=== PATIENT | male | born 1950 | race Caucasian/White ===

== ENCOUNTER 2017-10-14 08:51 | Outpatient (RCR) | payer MEDICARE, SELFPAY | END 2017-10-27 23:59 | LOC: DC 08:51 | PROVIDERS: Family Provider Family Medicine; PCP Family Medicine; Visit Provider Physician Assistant Medical | DX: E11.9 Type 2 diabetes mellitus without complications (principal); G47.30 Sleep apnea, unspecified; I42.9 Cardiomyopathy, unspecified; I48.91 Unspecified atrial fibrillation; Z68.41 Body mass index [BMI] 40.0-44.9, adult; E66.9 Obesity, unspecified; Z71.3 Dietary counseling and surveillance | CPT/HCPCS: G0108 ==

== ENCOUNTER 2017-11-18 10:00 | Outpatient (RCR) | payer MEDICARE, SELFPAY | END 2017-11-24 23:59 | LOC: DC 10:00 | PROVIDERS: Family Provider Family Medicine; PCP Family Medicine; Visit Provider Physician Assistant Medical | DX: E11.9 Type 2 diabetes mellitus without complications (principal); G47.30 Sleep apnea, unspecified; I42.9 Cardiomyopathy, unspecified; I48.91 Unspecified atrial fibrillation; Z68.41 Body mass index [BMI] 40.0-44.9, adult; E66.9 Obesity, unspecified; Z71.3 Dietary counseling and surveillance | CPT/HCPCS: G0108 ==

== ENCOUNTER 2018-01-20 15:49 | Outpatient (RCR) | payer MEDICARE, SELFPAY | END 2018-01-24 23:59 | LOC: DC 15:49 | PROVIDERS: Family Provider Family Medicine; PCP Family Medicine; Visit Provider Physician Assistant Medical | DX: E11.9 Type 2 diabetes mellitus without complications (principal); G47.30 Sleep apnea, unspecified; I42.9 Cardiomyopathy, unspecified; I48.91 Unspecified atrial fibrillation; Z68.41 Body mass index [BMI] 40.0-44.9, adult; E66.9 Obesity, unspecified; Z71.3 Dietary counseling and surveillance | CPT/HCPCS: G0108 ==

== ENCOUNTER 2018-03-09 11:26 | Outpatient (RCR) | payer MEDICARE, SELFPAY | END 2018-03-26 23:59 | LOC: DC 11:26 | PROVIDERS: Family Provider Family Medicine; PCP Family Medicine; Visit Provider Physician Assistant Medical | DX: E11.9 Type 2 diabetes mellitus without complications (principal); G47.30 Sleep apnea, unspecified; I42.9 Cardiomyopathy, unspecified; I48.91 Unspecified atrial fibrillation; Z68.41 Body mass index [BMI] 40.0-44.9, adult; E66.9 Obesity, unspecified; Z71.3 Dietary counseling and surveillance | CPT/HCPCS: G0108 ==

== ENCOUNTER 2018-04-18 15:32 | Outpatient (RCR) | payer MEDICARE, SELFPAY | END 2018-04-26 23:59 | LOC: DC 15:32 | PROVIDERS: Family Provider Family Medicine; PCP Family Medicine; Visit Provider Physician Assistant Medical | DX: E11.9 Type 2 diabetes mellitus without complications (principal); G47.30 Sleep apnea, unspecified; I42.9 Cardiomyopathy, unspecified; I48.91 Unspecified atrial fibrillation; E66.9 Obesity, unspecified; Z68.41 Body mass index [BMI] 40.0-44.9, adult; Z71.3 Dietary counseling and surveillance | CPT/HCPCS: 97803 ==

== ENCOUNTER 2018-06-14 08:52 | Outpatient (RCR) | payer MEDICARE, SELFPAY | END 2018-06-26 23:59 | LOC: DC 08:52 | PROVIDERS: Family Provider Family Medicine; PCP Family Medicine; Visit Provider Physician Assistant Medical | DX: E11.9 Type 2 diabetes mellitus without complications (principal); G47.30 Sleep apnea, unspecified; I42.9 Cardiomyopathy, unspecified; E78.5 Hyperlipidemia, unspecified; I48.91 Unspecified atrial fibrillation; E66.9 Obesity, unspecified; Z68.41 Body mass index [BMI] 40.0-44.9, adult; Z71.3 Dietary counseling and surveillance | CPT/HCPCS: G0108 ==

== ENCOUNTER 2018-08-09 09:56 | Outpatient (RCR) | payer MEDICARE, SELFPAY | END 2018-08-09 12:03 | disposition home or self-care (01) | LOC: DC 09:56 | PROVIDERS: Family Provider Family Medicine; PCP Family Medicine; Referring Provider Physician Assistant Medical; Visit Provider Physician Assistant Medical | DX: E11.9 Type 2 diabetes mellitus without complications (principal); G47.30 Sleep apnea, unspecified; I42.9 Cardiomyopathy, unspecified; E78.5 Hyperlipidemia, unspecified; I48.91 Unspecified atrial fibrillation; E66.9 Obesity, unspecified; Z68.41 Body mass index [BMI] 40.0-44.9, adult; Z71.3 Dietary counseling and surveillance | CPT/HCPCS: G0108 ==

== ENCOUNTER 2018-11-22 14:00 | Outpatient (RCR) | payer MEDICARE, SELFPAY | END 2018-11-24 23:59 | LOC: DC 14:00 | PROVIDERS: Family Provider Family Medicine; PCP Family Medicine; Visit Provider Family Medicine | DX: E11.9 Type 2 diabetes mellitus without complications (principal) | CPT/HCPCS: 97803; G0108 ==

== ENCOUNTER 2019-01-12 11:59 | Outpatient (RCR) | payer MEDICARE, SELFPAY ==
[2018-06-07 09:38] VITALS: BMI 40.7
== END 2019-01-24 23:59 ==
LOC: DC 11:59
PROVIDERS: Family Provider Family Medicine; PCP Family Medicine; Visit Provider Family Medicine
DX: E11.9 Type 2 diabetes mellitus without complications (principal); Z71.3 Dietary counseling and surveillance
CPT/HCPCS: 97803

== ENCOUNTER 2019-04-11 10:45 | Outpatient (RCR) | payer MEDICARE, SELFPAY ==
[2018-06-07 09:38] VITALS: BMI 40.7
[2019-03-08 12:40] VITALS: BMI 42.5
== END 2019-04-26 23:59 ==
LOC: DC 10:45
PROVIDERS: Family Provider Family Medicine; PCP Family Medicine; Visit Provider Family Medicine
DX: E11.9 Type 2 diabetes mellitus without complications (principal); Z71.3 Dietary counseling and surveillance
CPT/HCPCS: 97803

== ENCOUNTER 2019-07-06 14:42 | Outpatient (RCR) | payer MEDICARE, SELFPAY ==
[2019-03-08 12:40] VITALS: BMI 42.5
== END 2019-07-06 23:59 | disposition home or self-care (01) ==
LOC: DC 14:42
PROVIDERS: Family Provider Family Medicine; PCP Family Medicine; Visit Provider Family Medicine
DX: E11.9 Type 2 diabetes mellitus without complications (principal); Z71.3 Dietary counseling and surveillance
CPT/HCPCS: G0108

== ENCOUNTER → 2019-10-17 15:46 | Outpatient (CLI) | payer MEDICARE, SELFPAY ==
[2019-10-05 14:27] VITALS: BMI 40.6
[2019-10-17 16:30] LABS: Hemoglobin A1c 6.4 % (4.2-6.3)
[2019-10-17 16:40] LABS: Anion Gap 4 (5-15); BUN 12 mg/dL (7-18); BUN/Creat Ratio 17.3 RATIO (10-20); Calcium,Total 8.6 mg/dL (8.5-10.1); Chloride 111 mmol/L (98-107); Creatinine, Serum 0.69 mg/dL (0.70-1.30); EST Glomerular Filtration Rate 120 mL/min (>60); Est Glom Filt Rate - Afr Amer 146 mL/min (>60); Glucose 97 mg/dL (74-106); Potassium 3.9 mmol/L (3.5-5.1); Sodium Level 142 mmol/L (136-145)
== END ==
PROVIDERS: PCP Family Medicine; Referring Provider Physician Assistant; Visit Provider Physician Assistant
DX: Z01.818 Encounter for other preprocedural examination (principal); Z01.810 Encounter for preprocedural cardiovascular examination; E11.9 Type 2 diabetes mellitus without complications; I10 Essential (primary) hypertension
CPT/HCPCS: 36415; 80048; 83036

== ENCOUNTER 2020-09-05 15:02 | Outpatient (RCR) | payer MEDICARE, SELFPAY ==
[2020-09-05 14:26] VITALS: BMI 39.4
[2020-09-05 16:04] LABS: International Normalized Ratio 2.5; Prothrombin Time (Protime)PT. 26.4 SECONDS (11.7-14.9)
== END 2020-09-05 18:00 | disposition home or self-care (01) ==
LOC: LAB 15:02
PROVIDERS: PCP Family Medicine; Referring Provider Physician Assistant Medical
DX: I48.0 Paroxysmal atrial fibrillation (principal)
CPT/HCPCS: 36415; 85610

== ENCOUNTER 2020-10-17 08:54 | Outpatient (RCR) | payer MEDICARE, SELFPAY ==
[2020-10-03 10:02] LABS: International Normalized Ratio 1.8; Prothrombin Time (Protime)PT. 20.5 SECONDS (11.7-14.9)
[2020-10-17 10:17] LABS: International Normalized Ratio 1.6; Prothrombin Time (Protime)PT. 18.6 SECONDS (11.7-14.9)
== END 2020-10-17 18:00 | disposition home or self-care (01) ==
LOC: LAB 08:54
PROVIDERS: Internal Medicine Cardiovascular Disease; PCP Family Medicine; Referring Provider Physician Assistant Medical; Visit Provider Physician Assistant Medical
DX: I48.0 Paroxysmal atrial fibrillation (principal)
CPT/HCPCS: 36415; 85610

== ENCOUNTER 2020-11-14 09:01 | Outpatient (RCR) | payer MEDICARE, SELFPAY ==
[2020-10-31 09:00] LABS: International Normalized Ratio 2.2; Prothrombin Time (Protime)PT. 24.3 SECONDS (11.7-14.9)
[2020-11-14 10:11] LABS: Prothrombin Time (Protime)PT. 22.4 SECONDS (11.7-14.9)
== END 2020-11-14 18:00 | disposition home or self-care (01) ==
LOC: LAB 09:01
PROVIDERS: PCP Family Medicine; Referring Provider Physician Assistant Medical; Visit Provider Physician Assistant Medical
DX: I48.0 Paroxysmal atrial fibrillation (principal)
CPT/HCPCS: 36415; 85610

== ENCOUNTER 2020-12-05 08:43 | Outpatient (RCR) | payer MEDICARE, SELFPAY ==
[2020-12-05 10:15] LABS: International Normalized Ratio 2.2; Prothrombin Time (Protime)PT. 23.7 SECONDS (11.7-14.9)
== END 2020-12-05 18:00 | disposition home or self-care (01) ==
LOC: LAB 08:43
PROVIDERS: PCP Family Medicine; Referring Provider Physician Assistant Medical; Visit Provider Physician Assistant Medical
DX: I48.0 Paroxysmal atrial fibrillation (principal)
CPT/HCPCS: 36415; 85610

== ENCOUNTER → 2020-12-16 | Outpatient (CLI) | payer MEDICARE, SELFPAY ==
--- NOTE | 2020-12-16 | COLBX_PTH ---
PATIENT: AMAURI SHAH Jr. LOC: [facility] U#:[id number] AGE/SX: 70/M ROOM: RE12/16/[address]: Dr. Carrillo Chris MD : [id number] BED: DIS: 12/16/2020 SPEC #: [id number] RECD: 12/16/20 14:52 STATUS: ABIEL VALDOVINOS #: [id number] NADEEM: 12/16/20 00:[address]: Carrillo Chris DEPT: SURGICAL PATHOLOGY RECD BY: Barry Be ENTERED: 12/17/20 07:54 SP TYPE: COLON BX OTHR DR: Dr. Shola Be MD [facility] Tissues: A - Right colon B - Left colon C - Sigmoid colon biopsy Procedures: Surgery Specimen Level IV HEADER OPERATION: Colonoscopy with biopsies PRE-OP DIAGNOSIS: Ulcerative colitis, rectal bleed, diarrhea TISSUE SUBMITTED: A - Right colon, rule out active ulcerative colitis, B - Left colon/transverse colon, rule out UC, C - Distal sigmoid/rectum, rule out UC/dysplasia MICROSCOPIC DIAGNOSIS A. Right colon, biopsy: No significant pathologic change. See comment. B. Left colon, biopsy: No significant pathologic change. See comment. C. Distal sigmoid/rectum, biopsy: Chronic active colitis pattern of injury. See comment. AM:vianey 12/18/2020 COMMENT A & B. Eosinophils are mildly increased in the mucosa. The significance of this is unclear. Clinical correlation is suggested. There is no evidence of ulcerative colitis. C. Sections show mucosal ulceration with acute and chronic inflammation, granulation, cryptitis and glandular distortion. There is no evidence of dysplasia. Clinical correlation is suggested. MICROSCOPIC DESCRIPTION Slides are reviewed. GROSS DESCRIPTION A - Received in fixative is one container labeled with the patient's name and designated right colon. The specimen consists of multiple irregular fragments of light boone soft tissue that in aggregate measure 2 x 0.3 x 0.1 cm. The specimen is totally submitted in one cassette. B - Received in fixative is one container labeled with the patient's name and designated left/transverse colon. The specimen consists of multiple irregular fragments of light boone soft tissue that in aggregate measure 1 x 0.5 x 0.1 cm. The specimen is totally submitted in one cassette. C - Received in fixative is one container labeled with the patient's name and designated distal sigmoid/rectum. The specimen consists of multiple irregular fragments of light boone soft tissue that in aggregate measure 0.8 x 0.5 x 0.1 cm. The specimen is totally submitted in one cassette. / SJ:vianey 12/17/20 TC:2 CPT: 56289 x3
== END | disposition home or self-care (01) ==
PROVIDERS: PCP Family Medicine; Referring Provider Internal Medicine Gastroenterology; Visit Provider Internal Medicine Gastroenterology
DX: K51.90 Ulcerative colitis, unspecified, without complications (principal); K62.5 Hemorrhage of anus and rectum; R19.7 Diarrhea, unspecified
CPT/HCPCS: 88305

== ENCOUNTER → 2020-12-24 14:58 | Outpatient (CLI) | payer MEDICARE, SELFPAY ==
[2020-12-25 08:28] LABS: Hepatitis B Surface Antigen Non-Reactive (Nonreactive)
[2020-12-28 09:07] LABS: QNTFERON TB Mitogen Value > 10.00 IU/mL (.); QNTFERON TB Nil Value 0.65 IU/mL (.); QNTFERON TB1+ Ag Value 0.57 IU/mL (.)
[2020-12-28 12:38] LABS: QNTIFERON TB Positive Criteria Negative (Negative)
== END ==
PROVIDERS: PCP Family Medicine; Referring Provider Internal Medicine Gastroenterology; Visit Provider Internal Medicine Gastroenterology
DX: K51.90 Ulcerative colitis, unspecified, without complications (principal)
CPT/HCPCS: 36415; 86480; 87340

== ENCOUNTER 2021-01-02 08:50 | Outpatient (RCR) | payer MEDICARE, SELFPAY ==
[2021-01-02 09:29] LABS: Prothrombin Time (Protime)PT. 21.5 SECONDS (11.7-14.9)
== END 2021-01-02 18:00 | disposition home or self-care (01) ==
LOC: LAB 08:50
PROVIDERS: PCP Family Medicine; Referring Provider Physician Assistant Medical; Visit Provider Physician Assistant Medical
DX: I48.0 Paroxysmal atrial fibrillation (principal)
CPT/HCPCS: 36415; 85610

== ENCOUNTER 2021-02-13 11:04 | Outpatient (RCR) | payer MEDICARE, SELFPAY ==
[2021-01-30 11:37] LABS: International Normalized Ratio 1.7
[2021-02-13 11:48] LABS: International Normalized Ratio 2.2; Prothrombin Time (Protime)PT. 23.5 SECONDS (11.7-14.9)
== END 2021-02-14 18:00 | disposition home or self-care (01) ==
LOC: LAB 11:04
PROVIDERS: PCP Family Medicine; Referring Provider Physician Assistant Medical; Visit Provider Physician Assistant Medical
DX: I48.0 Paroxysmal atrial fibrillation (principal)
CPT/HCPCS: 36415; 85610

== ENCOUNTER 2021-03-06 08:35 | Outpatient (RCR) | payer MEDICARE, SELFPAY ==
[2021-03-06 09:48] LABS: International Normalized Ratio 2.3; Prothrombin Time (Protime)PT. 24.2 SECONDS (11.7-14.9)
== END 2021-03-06 18:00 | disposition home or self-care (01) ==
LOC: LAB 08:35
PROVIDERS: PCP Family Medicine; Referring Provider Physician Assistant Medical; Visit Provider Physician Assistant Medical
DX: I48.0 Paroxysmal atrial fibrillation (principal)
CPT/HCPCS: 36415; 85610

== ENCOUNTER 2021-11-26 11:49 | Outpatient (CLI) | payer MEDICARE, SELFPAY ==
[2021-11-26 13:37] LABS: BNP,B-Type NATRIURETIC PEPTIDE 24.6 pg/mL (0-100)
== END 2021-11-26 23:59 | disposition home or self-care (01) ==
LOC: LAB 11:52
PROVIDERS: PCP Family Medicine; Visit Provider Physician Assistant Medical
DX: R06.00 Dyspnea, unspecified (principal)
CPT/HCPCS: 36415; 83880

== ENCOUNTER 2021-11-28 11:02 | Outpatient (CLI) | payer MEDICARE, SELFPAY ==
--- NOTE | 2021-11-28 11:05 | ECHOD_ITS ---
Reason For Study: CHF, Pre-op Procedure This was a 2D Doppler, Color Flow transthoracic echocardiogram. The study was technically difficult. Exam performed in department. Left Ventricle Normal LV size. Mild concentric left ventricular hypertrophy. Left ventricular systolic function is normal. Stage 1 diastolic dysfunction. No regional wall motion abnormalities noted. Right Ventricle Normal RV size. Normal systolic function. Mitral Valve Mitral valve not well visualized. Tricuspid Valve Normal tricuspid valve. Aortic Valve The aortic valve is not well visualized. Pulmonic Valve The pulmonic valve is not well visualized. Great Vessels Normal aortic root. The pulmonary artery is normal size. Normal inferior vena cava. Pericardium/Pleural No pericardial effusion. Medication 22 gauge I.V. with prn adaptor inserted into right arm. Diluted definity 1.5ml given slow IV push to enhance endocardial definition. MMode/2D Measurements & Calculations LVIDd: 4.2 cm IVSd: 1.3 cm Ao root diam: 3.1 cm LVIDs: 2.7 cm LVPWd: 1.2 cm RVDd: 3.5 cm FS: 36.4 % LAV(MOD-bp): 63.2 ml LVAd ap4: 42.8 cm2 SV(MOD-sp4): 102.8 ml LAV(MOD-bp) Indexed: 28.7 ml/m2 LVLd ap4: 9.4 cm LAV(MOD-sp2): 61.7 ml EDV(MOD-sp4): 157.3 ml LAV(MOD-sp4): 59.6 ml EDV(sp4-el): 165.0 ml LVAs ap4: 22.2 cm2 LVLs ap4: 7.6 cm ESV(MOD-sp4): 54.6 ml ESV(sp4-el): 55.2 ml EF(MOD-sp4): 65.3 % EF(sp4-el): 66.6 % SV(sp4-el): 109.8 ml LA A4 area: 19.4 cm2 LA dimension(2D): 4.1 cm RA A4 area: 12.6 cm2 Doppler Measurements & Calculations MV E max guy: 43.9 cm/sec Lat Peak E' Guy: 10.5 cm/sec Med Peak E' Guy: 5.4 cm/sec MV A max guy: 48.6 cm/sec E/E' lat: 4.2 E/E' med: 8.1 MV E/A: 0.90 Ao V2 max: 133.2 cm/sec PA V2 max: 92.3 cm/sec Ao max P.1 mmHg ECHO/Echo Complete W/ Contrast Interpretation Summary Normal LV size. Mild concentric left ventricular hypertrophy. Left ventricular systolic function is normal. Stage 1 diastolic dysfunction. Contrast injection was performed. Ordering Physician: Merlyn Roman/Alexandro Saldivar Referring Physician: Shola Be Performed By: Keyana Garvey RDCS
== END 2021-11-28 23:59 | disposition home or self-care (01) ==
LOC: CVS 11:04
PROVIDERS: PCP Family Medicine; Referring Provider Physician Assistant Medical; Visit Provider Physician Assistant Medical
DX: I48.0 Paroxysmal atrial fibrillation (principal)
CPT/HCPCS: 93306; Q9957; A4216; C8929

== ENCOUNTER → 2022-02-11 | Outpatient (CLI) | payer MEDICARE, SELFPAY ==
[2022-02-11 16:14] LABS: ALB/GLOB Ratio 1.1 RATIO (0.9-2.4); AST(SGOT) 26 U/L (15-37); Alanine Aminotransfer ALT/SGPT 33 U/L (16-61); Albumin, Serum 3.1 g/dL (3.2-5.0); Alkaline Phosphatase 35 U/L (45-117); Anion Gap 4 (5-15); BUN 18 mg/dL (7-18); BUN/Creat Ratio 34.2 RATIO (10-20); Calcium,Total 8.6 mg/dL (8.5-10.1); Chloride 105 mmol/L (98-107); Creatinine, Serum 0.53 mg/dL (0.70-1.30); EST Glomerular Filtration Rate 164 mL/min (>60); Est Glom Filt Rate - Afr Amer 199 mL/min (>60); Globulin 2.9 g/dL (2.2-4.2); Glucose 160 mg/dL (74-106); Potassium 4.8 mmol/L (3.5-5.1); Sodium Level 138 mmol/L (136-145)
[2022-02-11 22:33] LABS: BNP,B-Type NATRIURETIC PEPTIDE 24.7 pg/mL (0-100)
== END | disposition home or self-care (01) ==
LOC: LAB 14:53
PROVIDERS: PCP Family Medicine; Referring Provider Nurse Practitioner Family; Visit Provider Nurse Practitioner Family
DX: I50.9 Heart failure, unspecified (principal); R06.00 Dyspnea, unspecified
CPT/HCPCS: 36415; 80053; 83880

== ENCOUNTER 2022-04-11 18:25 | Inpatient (IN) | payer MEDICARE, SELFPAY ==
[2022-04-11] VITALS (8 sets, daily range): BP systolic 97–159; BP diastolic 58–89; PULSE 84–116; RESP 16–28; TEMP 37.3–39.1; O2SAT 96–100; BMI 40.9; BMI 38.9
--- NOTE | 2022-04-11 18:41 | EKG12_ITS ---
Test Reason : DYSRYTHMIA Blood Pressure : / mmHG Vent. Rate : 105 BPM Atrial Rate : 105 BPM P-R Int : 162 ms QRS Dur : 092 ms QT Int : 338 ms P-R-T Axes : 062 -46 018 degrees QTc Int : 446 ms Sinus tachycardia Left anterior fascicular block Abnormal ECG Confirmed by VIVIENNE CEE, RACHNA ([id number]), sports editor ESTEBAN ALBERTS ([id number]) on 04/13/2022 11:07:28 AM Referred By: TRACY Confirmed By:RACHNA PALAFOX MD
--- NOTE | 2022-04-11 18:43 | EDS_ITS ---
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 fib, diabetes and CHF. He is on the blood thinner Eliquis. He states that he has been feeling well he has had increased swelling in his lower extremity for months. He is also had diarrhea for weeks about 4-5 times a day. And is now developed a low-grade temperature. He denies any cough or significant shortness of breath. He denies any abdominal pain. He lives at home with his who is currently not present but when she comes in I will discuss his care with her. Prior similar symptoms: Yes Recent Illness/Hospitalization: No [facility] Medical History Essential (primary) hypertension Glioblastoma Hyperlipidemia Muscle cramps Obesity (BMI 30-39.9) Obstructive sleep apnea PAF (paroxysmal atrial fibrillation) Paroxysmal atrial fibrillation Type 2 diabetes mellitus Home Medications lisinopril 5 mg tablet 5 mg PO BID 12/06/17 [History Last Taken Unknown] multivitamin 1 tab PO QDAY 12/07/17 [History Last Taken Unknown] memantine 10 mg tablet 10 mg PO BID 06/19/21 [History Last Taken Unknown] metformin 500 mg tablet 500 mg PO BID 06/19/21 [History Last Taken Unknown] sotalol 120 mg tablet 120 mg PO Q12H #180 tabs 10/08/21 [Rx Last Taken Unknown] dexamethasone 2 mg tablet 2 mg PO BID 02/11/22 [History Last Taken Unknown] lomustine 10 mg capsule 20 mg PO Q6W 02/11/22 [History Last Taken Unknown] lomustine 100 mg capsule 200 mg PO Q6W 02/11/22 [History Last Taken Unknown] ondansetron HCl 8 mg tablet 8 mg PO Q8H PRN Nausea 02/11/22 [History Last Taken Unknown] pantoprazole 20 mg tablet,delayed release 20 mg PO DAILY 02/11/22 [History Last Taken Unknown] furosemide 40 mg tablet 40 mg PO .COMPLEX #90 tabs 02/13/22 [Rx Last Taken Unknown] apixaban 5 mg tablet (Eliquis) 5 mg PO BID #60 tabs 03/16/22 [Rx Last Taken Unknown] Allergy/AdvReac Type Severity Reaction Status Date / Time prednisone Allergy Severe Anaphylaxis Verified 04/11/22 18:26 Family History Mother Colon cancer Father Myocardial infarction Struck by lightening Other CAD (coronary artery disease) Hyperlipidemia Hypertension Surgical History History of cardioversion History of craniotomy (12/02/21) History of left heart catheterization (05/2012) Social History (Updated 04/11/22 @ 19:[address] Angela Valdes MD) household members: spouse Smoking Status: Never smoker alcohol intake: never substance use type: does not use caffeine: Yes Type: tea Number of servings: 1 ROS ROS ED ROS Narrative Bilateral leg swelling. Diarrhea. Generalized weakness. Fever. Review of Systems ROS Unobtainable: Denies due to encephalopathy Constitutional Constitutional ED: Reports fever(s) Eyes Eyes: Denies blurry vision ENT ENT ED: Denies ear pain Cardiovascular Cardiovascular: Denies chest pain Respiratory/Chest Respiratory/Chest: Denies cough Gastrointestinal Gastrointestinal: Reports diarrhea; Denies abdominal pain or constipation Genitourinary Genitourinary ED: Denies dysuria or hematuria Musculoskeletal Musculoskeletal: Denies arthralgias Integumentary Denies abscess Neurologic Neurologic: Denies headache(s) Psychiatric Psychiatric: Denies anxiety Endocrine Endocrinology: Denies cold intolerance Hematologic/Lymphatic Hematologic/Lymphatic: Reports easy bleeding Allergic/Immunologic Allergic/Immunologic ED: Denies mouth swelling, tongue swelling or urticaria EXAM Physical Exam Narrative Exam Narrative: 8-year-old male no acute distress vital signs stable pulse ox 90% on room air no hypoxia. He does have a low-grade temperature 100.5. H EENT exam unremarkable. Neck nontender no JVD. Lungs clear to auscultation. Heart tachycardic rate of 107. No murmur appreciated. Abdomen obese but soft nontender normal bowel sounds no peritoneal signs. Extremities moves all 4. Equal symmetrical 5-5 electrical controls engineer strength. Dorsi plantarflexion intact. He has 3-4+ edema both lower extremities. Right lower leg has cellulitis on the anterior yanes below the knee and above the ankle. Warm to the touch. Mildly tender. Left leg is not cellulitic. All the way up to mid thighs. Neurologically is awake and alert. Moving all 4 extremities. He is answering questions and following commands. Const Vital Signs: 04/11/22 18:27 04/11/22 19:32 Temperature 100.5 F H 100.0 F H Temperature Source Oral Temporal Pulse Rate 107 H 104 H Respiratory Rate 16 18 Blood Pressure 112/79 132/76 H Blood Pressure Mean 90 94 Pulse Ox 99 96 Oxygen Delivery Method Room Air Positive well nourished, well developed and obese; Negative for cachectic, contractures or unkempt General Appearance ED: well developed; Negative for unkempt, cachectic or contractures Nutritional Appearance: obese; Negative for cachectic HEENT Reports moist mucous membranes Negative for trauma Eyes PERRL and EOMs intact bilaterally General Eye ED: Negative for pale conjunctiva or scleral icterus Neck no lymphadenopathy, supple and no JVD General: Negative for tenderness Lymph Lymphatic: Negative for other Chest Wall inspection of chest normal and palpation of chest normal Resp normal respiratory effort and clear to auscultation bilaterally Effort and Inspection: Negative for retractions Auscultation: Negative for rales, rhonchi or wheezes Cardio no murmurs; Negative for regular rate Rate: tachycardic GI normal to inspection, nondistended, normoactive bowel sounds, non-tender, non- distended and no masses Inspection: Negative for abdominal distention Auscultation: normoactive bowel sounds Palpation: soft; Negative for tender or guarding Extremity Negative for normal to inspection Extremity Narrative: Bilateral lower extremity mid thigh pitting edema. Right lower leg cellulitis. Red warm to touch. Mildly tender. General Extremety ED: Yes edema General Extremity: edema Neuro oriented x3 Sensorium / Orientation: alert; Negative for orientation impaired, lethargic or stuporous Motor Exam: strength 5/5 throughout Psych Appearance: Negative for unkempt Attitude: No agitated Mood & Affect: Negative for depressed or anxious Skin no rashes or lesions noted and no wounds Lesions: No lesion noted Rashes: No rashes noted Trauma: Negative for abrasion Wounds: Negative for wounds noted MDM MDM MDM Narrative Medical decision making narrative: 71-year-old male with weeks of diarrhea, leg swelling, brain surgery x2 this year for glioblastoma and now low-grade fever. Septic work-up pursued. He will not receive IV fluids because clinically looks like he is in congestive heart failure. He is stable and is not hypotensive. Repeat exam unchanged. Patient's is now present and she is able to fill in a lot of the history. On repeat exam he has an obvious cellulitis on his right lower leg. It most likely is what is accounting for his low-grade fever. He will be started on IV Unasyn. Patient will be admitted. He is currently on chemotherapy and is diabetic. I have the hospitalist on page. Lab Data Attestation: I reviewed the patient's lab results. Lab results narrative: CBC shows a white count 7. H&H 12.4 and 36. Platelets are low at 57,000. Electrolytes show potassium of 3.4 gap of 8 normal BUN and creatinine. Liver enzymes are unremarkable. BNP is normal at 76. Lactic acid is elevated at 2.1. Urinalysis is negative. Labs: Laboratory Results - last 24 hr 04/11/22 04/11/22 04/11/22 18:00 18:00 18:00 WBC 7.1 RBC 3.52 L Hgb 12.4 L Hct 36.4 L MCV 103.4 H MCH 35.2 H MCHC 34.1 RDW Std Deviation 79.9 H RDW Coeff of Feroz 21.3 H Plt Count 57 L MPV 9.2 Immature Gran % (Auto) 0.400 Neut % (Auto) 81.0 H Lymph % (Auto) 15.5 L [place] % (Auto) 3.0 Eos % (Auto) 0.0 Baso % (Auto) 0.1 Absolute Neuts (auto) 5.8 Absolute Lymphs (auto) 1.10 Nucleated RBC % 0 Differential Comment SCANNED Platelet Estimate MOD DEC Anisocytosis 2+ Microcytosis 1+ Macrocytosis 1+ Sodium 142 Potassium 3.4 L Chloride 106 Carbon Dioxide 28.0 Anion Gap 8 BUN 16 Creatinine 0.50 L Estim Creat Clear Calc 66.50 Est GFR (MDRD) Af Amer 211 Est GFR (MDRD) Non-Af 175 BUN/Creatinine Ratio 32.1 H Glucose 152 H Lactic Acid Calcium 8.6 Total Bilirubin 2.30 H AST 15 ALT 28 Alkaline Phosphatase 39 L Troponin I High Sens 5 B-Natriuretic Peptide 76.9 Total Protein 6.3 L Albumin 3.2 Globulin 3.1 Albumin/Globulin Ratio 1.0 Urine Color Urine Clarity Urine pH Ur Specific [place] Urine Protein Urine Glucose (UA) Urine Ketones Urine Occult Blood Urine Nitrite Urine Bilirubin Urine Urobilinogen Ur Leukocyte Esterase Urine RBC Urine WBC Ur Squamous Epith Cells Urine Bacteria Urine Mucus 04/11/22 04/11/22 18:40 18:55 WBC RBC Hgb Hct MCV MCH MCHC RDW Std Deviation RDW Coeff of Feroz Plt Count MPV Immature Gran % (Auto) Neut % (Auto) Lymph % (Auto) [place] % (Auto) Eos % (Auto) Baso % (Auto) Absolute Neuts (auto) Absolute Lymphs (auto) Nucleated RBC % Differential Comment Platelet Estimate Anisocytosis Microcytosis Macrocytosis Sodium Potassium Chloride Carbon Dioxide Anion Gap BUN Creatinine Estim Creat Clear Calc Est GFR (MDRD) Af Amer Est GFR (MDRD) Non-Af BUN/Creatinine Ratio Glucose Lactic Acid 2.1 H* Calcium Total Bilirubin AST ALT Alkaline Phosphatase Troponin I High Sens B-Natriuretic Peptide Total Protein Albumin Globulin Albumin/Globulin Ratio Urine Color Yellow Urine Clarity Clear Urine pH 8.0 Ur Specific [place] 1.010 Urine Protein Negative Urine Glucose (UA) Normal Urine Ketones Negative Urine Occult Blood Negative Urine Nitrite Negative Urine Bilirubin Negative Urine Urobilinogen 4 H Ur Leukocyte Esterase Negative Urine RBC 0 SEEN Urine WBC 0 SEEN Ur Squamous Epith Cells 0 SEEN Urine Bacteria 0 SEEN Urine Mucus 0 SEEN Radiography Chest X-Ray - ED: 1 View, Read by ED Physician, Heart, Lungs, Mediastinum, Bony Structures, No Acute Disease and Chronic Changes Diagnostic Testing: Chest rate, portable, single view interpreted myself shows no acute abnormality. Normal cardiac silhouette. No congestive heart failure. No pleural effusions. Rhythm Strip Rhythm Strip: Sinus Tach Rate: 105 EKG Initial EKG: Attestation: I personally reviewed and interpreted this EKG as follows: Interpretation: Sinus Rhythm, No Acute Injury Pattern and Sinus Tachycardia Comments: Sinus tachycardia rate of 105 no acute signs of MD nor ischemia nor any signs of dysrhythmia. Discharge Plan Dx/Rx/DC Orders Clinical Impression: Cellulitis of leg, right, Glioblastoma, Adult failure to thrive, Peripheral edema, Immunocompromised, Thrombocytopenia Disposition Disposition: Acute Care [facility]
[2022-04-11 19:12] LABS: Absolute Neutrophil Count 5.8 X10^3/uL (2.0-7.7); Basophil# 0.01 X10^3/uL; Basophil% 0.1 % (0-1); Hematocrit 36.4 % (40-54); Hemoglobin 12.4 g/dL (13.0-16.5); Lymphocyte % 15.5 % (19-41); Mean Corp Hgb Conc 34.1 g/dL (32-36); Mean Corpuscular Hgb 35.2 pg (27.0-32.0); Mean Corpuscular Volume 103.4 fL (80-94); Mean Platelet Vol. 9.2 fl (6.2-12.0); Monocyte# 0.21 X10^3/uL; NRBC Flagged by Analyzer 0 % (0-5); Neutrophil # 5.75 X10^3/uL (2.7-7.7); POSITIVE COUNT YES; POSITIVE MORPHOLOGY YES; Platelet Count 57 K/mm3 (150-450); RBC Distribution Width CV 21.3 % (11.6-14.6); RBC Distribution Width SD 79.9 fl (35.1-43.9); Red Blood Count 3.52 M/mm3 (4.6-6.2); White Blood Count 7.1 K/mm3 (4.4-11.0)
[2022-04-11 19:12] LABS: Bacteria 0 SEEN /hpf (None Seen); Color, Urine Yellow (Yellow); Glucose, Dipstick Normal (Normal); Ketone-Dipstick Negative (Negative); Leukocyte Esterase-Dipstick Negative /ul (Negative); Mucous, Urine 0 SEEN /hpf (<or=2+); Nitrite-Dipstick Negative (Negative); Occult Blood-Urine Negative /ul (Negative); Protein-Dipstick Negative (Negative); Red Blood Cells-Urine 0 SEEN /hpf (0-5); Squamous Epithelial Cells - UA 0 SEEN /hpf (0-5); Urine Bilirubin Dipstick Negative (Negative); Urine Clarity Clear (Clear); Urine Urobilinogen 4 mg/dl (Normal); White Blood Cells 0 SEEN /hpf (0-5)
[2022-04-11 19:13] LABS: Differential Indicated SCAN CRITERIA MET
--- NOTE | 2022-04-11 19:19 | RAD_ITS ---
STUDY: X-RAY CHEST REASON FOR EXAM: Male, 71 years old. chf ?? TECHNIQUE: Single AP portable view of the chest. COMPARISON: 05/27/2012. FINDINGS: The lungs are clear and expanded. There is no demonstrated pleural abnormality. Normal size heart. Normal mediastinum and tone. Normal visualized pulmonary arteries. Normal visualized aortic arch and descending thoracic aorta. Degenerative changes of the left acromioclavicular joint. Soft tissues and bony structures are otherwise unremarkable. RAD/Chest 1 View (Portable) IMPRESSION: No acute findings. Electronically Signed: Mary Andrade MD at 21:49 EDT Reading Location ID and State: [id number] / Tel , Service support ,
[2022-04-11 19:33] LABS: BNP,B-Type NATRIURETIC PEPTIDE 76.9 pg/mL (0-100)
[2022-04-11 19:34] LABS: AST(SGOT) 15 U/L (15-37); Alanine Aminotransfer ALT/SGPT 28 U/L (16-61); Albumin, Serum 3.2 g/dL (3.2-5.0); Alkaline Phosphatase 39 U/L (45-117); Anion Gap 8 (5-15); BUN 16 mg/dL (7-18); BUN/Creat Ratio 32.1 RATIO (10-20); Calcium,Total 8.6 mg/dL (8.5-10.1); Chloride 106 mmol/L (98-107); EST Glomerular Filtration Rate 175 mL/min (>60); Est Glom Filt Rate - Afr Amer 211 mL/min (>60); Globulin 3.1 g/dL (2.2-4.2); Glucose 152 mg/dL (74-106); Potassium 3.4 mmol/L (3.5-5.1); Protein, Total 6.3 g/dL (6.4-8.2); Sodium Level 142 mmol/L (136-145); Troponin-I HS (w/2H Reflex) 5 pg/mL (3.0-78.0)
[2022-04-11 19:36] LABS: Lactic Acid 2.1 mmol/L (0.4-1.9)
[2022-04-11 19:37] LABS: Anisocytosis 2+; Differential Comment SCANNED; Macrocytosis 1+; Microcytosis 1+; Platelet Estimate MOD DEC (ADEQ)
--- NOTE | 2022-04-11 20:14 | PCM.HP.STD ---
HPI - General General Date of Admission: 04/11/22 Date of Service: 04/11/22 Chief Complaint: Fatigue, malaise, FTT adult, BL LE edema. HPI Narrative The patient is a 71 y/o M w/ PMHx: Hx Ulcerative colitis on immunosuppressive vedolizumab, Chronic anemia/Fe deficiency anemia, Dementia unclear type with unclear behavioral disturbance history, Non-obstructive CAD, GERD, Morbid Obesity, HTN, HLD, PAF on eliquis, Diabetes mellitus type II, BEVERLY, Stage IV Glioblastoma s/p bifrontal craniotomy with guided resection of the R frontoparietal mass in addition to radiation with additional repeat follow-up craniotomy with chronic fatigue, imbalance, Chronic BL LE edema (Duplex US negative, BNP normal, 11/28/21 ECHO with normal LV size, mild concentric LVH, normal LV systolic function, stage I diastolic dysfunction with contrast injection performed with CHF as etiology ruled out), lightheadedness/dizziness ongoing since at least 09/2021 who now presents to the [facility] ED on 04/11/22 with history of several weeks of persistence diarrhea 4-5x daily and now onset low-grade temperatures without any recent abdominal pain, dyspnea above prior, cough and incidentally noted RLE redness, discomfort on day of ED presentation prompting ED evaluation. Work-up in the ED included T1 100.5, heart rate 107, BP 112/79, respiratory rate 16, 99% on room air, CBC with WC 7.1, hemoglobin 12.4, MCV 103.4, platelet 57 without marked shift, CMP with potassium 3.4, BUN/creat 16/0.50, glucose 152, lactic acid 2.1, T bili 2.30 however AST/ALT, alk phos not marked appearing, troponin 5, BNP 76.9, urinalysis unremarkable with no obvious evidence of UTI or dehydration, blood culture x2 pending per ED, respiratory COVID viral antigen negative, chest x-ray with no acute cardiopulmonary finding, C. difficile requested per ED; however, did note 03/19/22 cdiff testing outpatient per Dr. Schultz negative, EKG with sinus tachycardia with no acute evidence of ischemia. In the ED secondary to incidentally noted right lower extremity erythema, cellulitis patient was administered Unasyn and Tylenol for fever. [facility] Medical History (Updated 07/16/22 @ 20:28 by Eloisa Jacobo) Atrial fibrillation Cancer CPAP (continuous positive airway pressure) dependence Diabetes Essential (primary) hypertension Glioblastoma Hyperlipidemia Muscle cramps Obesity (BMI 30-39.9) Obstructive sleep apnea PAF (paroxysmal atrial fibrillation) Paroxysmal atrial fibrillation Sleep apnea Type 2 diabetes mellitus Home Medications lisinopril 5 mg tablet 5 mg PO BID 12/06/17 [History Last Taken Unknown] multivitamin 1 tab PO QDAY 12/07/17 [History Last Taken Unknown] memantine 10 mg tablet 10 mg PO BID 06/19/21 [History Last Taken Unknown] metformin 500 mg tablet 500 mg PO BID 06/19/21 [History Last Taken Unknown] sotalol 120 mg tablet 120 mg PO Q12H #180 tabs 10/08/21 [Rx Last Taken Unknown] dexamethasone 2 mg tablet 2 mg PO BID 02/11/22 [History Last Taken Unknown] lomustine 10 mg capsule 20 mg PO Q6W 02/11/22 [History Last Taken Unknown] lomustine 100 mg capsule 200 mg PO Q6W 02/11/22 [History Last Taken Unknown] ondansetron HCl 8 mg tablet 8 mg PO Q8H PRN Nausea 02/11/22 [History Last Taken Unknown] pantoprazole 20 mg tablet,delayed release 20 mg PO DAILY 02/11/22 [History Last Taken Unknown] furosemide 40 mg tablet 40 mg PO .COMPLEX #90 tabs 02/13/22 [Rx Last Taken Unknown] apixaban 5 mg tablet (Eliquis) 5 mg PO BID #60 tabs 03/16/22 [Rx Last Taken Unknown] Allergy/AdvReac Type Severity Reaction Status Date / Time prednisone Allergy Severe Anaphylaxis Verified 04/11/22 18:26 Family History Mother Colon cancer Father Myocardial infarction Struck by lightening Other CAD (coronary artery disease) Hyperlipidemia Hypertension Surgical History History of cardioversion History of craniotomy (12/02/21) History of left heart catheterization (05/2012) Social History (Updated 04/11/22 @ 19:[address] Angela Valdes MD) household members: spouse Smoking Status: Never smoker alcohol intake: never substance use type: does not use caffeine: Yes Type: tea Number of servings: 1 ROS ROS Narrative Admission Review of Systems: CONSTITUTIONAL: No weight loss, chills, + fever, weakness or fatigue. HEENT: Eyes: No visual loss, blurred vision, double vision or yellow sclerae. Ears, Nose, Throat: No hearing loss, sneezing, congestion, runny nose or sore throat. SKIN: + RLE erythema, abrasions. CARDIOVASCULAR: + BL LE severe worsening edema. No chest pain, chest pressure or chest discomfort, palpitations, orthopnea, syncopal events. RESPIRATORY: + Mild shortness of breath, dry occasional cough. No sputum, wheezing, hemoptysis. GASTROINTESTINAL: + Anorexia, diarrhea, No nausea, vomiting, abdominal pain, melena, BRBPR. GENITOURINARY: No dysuria, frequency, urgency or retention. NEUROLOGICAL: + Imbalance, BL LE weakness, memory impairment No headache, dizziness, syncope, paralysis, ataxia, numbness or tingling in the extremities, focal weakness, change in bowel or bladder control, seizure. MUSCULOSKELETAL: + muscle, back pain, joint pain or stiffness. HEMATOLOGIC: + anemia, bleeding or bruising. LYMPHATICS: No enlarged nodes. No history of splenectomy. PSYCHIATRIC: No history of depression or anxiety. ENDOCRINOLOGIC: No reports of sweating, cold or heat intolerance. No polyuria or polydipsia. ALLERGIES: No history of asthma, hives, eczema or rhinitis. Vital Signs Vital Signs Vital Signs: 04/11/22 18:27 04/11/22 19:32 Temperature 100.5 F H 100.0 F H Temperature Source Oral Temporal Pulse Rate 107 H 104 H Respiratory Rate 16 18 Blood Pressure 112/79 132/76 H Blood Pressure Mean 90 94 Pulse Ox 99 96 Oxygen Delivery Method Room Air Weight Weight: 269 lb 6.478 oz Body Mass Index (BMI) 40.9 Physical Exam Narrative Physical Examination: General: Awake, alert, oriented x 3 and cooperative, seated upright in the ED bed, fatigued appearing, no acute distress. Skin: Normal color, normal turgor, no icterus, no cyanosis except notable right lower extremity mild erythema from ankle to knee, increased warmth compared to prior leg, abrasions noted with no drainage. HEENT: AT/NC, EOMI, PERRLA, MMM, no carotid bruits or JVD noted; however, thickened neck makes evaluation difficult. Lungs: Distant, diminished, greater bases, moderate effort, no rales, ronchi or wheezing. Heart: Mildly tachycardic with regular rhythm; no gallop, rub audible. Abdomen: Soft, morbidly obese, NTTP, difficult to assess distention given habitus, mildly hyperactive BS, no obvious HSM however habitus makes evaluation difficult Extremities: No cyanosis, no clubbing, pedal to distal thigh 3-4+ pitting edema. Neurological: Patient awake, alert, oriented as noted, cognitive function appears intact although does have some underlying memory impairment/dementia; pupils equally reactive to light and accommodation, cranial nerves II-XII grossly normal, moving all 4 extremities, no focal deficits, strength severely global decreased. Psychiatric: Affect appears flat, fatigued, no acute evidence of depressive or anxiety feelings. Results Lab / Micro Data Result Diagrams: 04/11/22 18:00 04/11/22 18:00 Labs: Laboratory Results - last 24 hr 04/11/22 18:00: WBC 7.1, RBC 3.52 L, Hgb 12.4 L, Hct 36.4 L, MCV 103.4 H, MCH 35.2 H, MCHC 34.1, RDW Std Deviation 79.9 H, RDW Coeff of Feroz 21.3 H, Plt Count 57 L, MPV 9.2, Immature Gran % (Auto) 0.400, Neut % (Auto) 81.0 H, Lymph % (Auto) 15.5 L, [place] % (Auto) 3.0, Eos % (Auto) 0.0, Baso % (Auto) 0.1, Absolute Neuts (auto) 5.8, Absolute Lymphs (auto) 1.10, Nucleated RBC % 0, Differential Comment SCANNED, Platelet Estimate MOD DEC, Anisocytosis 2+, Microcytosis 1+, Macrocytosis 1+ 04/11/22 18:00: Sodium 142, Potassium 3.4 L, Chloride 106, Carbon Dioxide 28.0, Anion Gap 8, BUN 16, Creatinine 0.50 L, Estim Creat Clear Calc 66.50, Est GFR (MDRD) Af Amer 211, Est GFR (MDRD) Non-Af 175, BUN/Creatinine Ratio 32.1 H, Glucose 152 H, Calcium 8.6, Total Bilirubin 2.30 H, AST 15, ALT 28, Alkaline Phosphatase 39 L, Troponin I High Sens 5, Total Protein 6.3 L, Albumin 3.2, Globulin 3.1, Albumin/Globulin Ratio 1.0 04/11/22 18:00: B-Natriuretic Peptide 76.9 04/11/22 18:40: Urine Color Yellow, Urine Clarity Clear, Urine pH 8.0, Ur Specific [place] 1.010, Urine Protein Negative, Urine Glucose (UA) Normal, Urine Ketones Negative, Urine Occult Blood Negative, Urine Nitrite Negative, Urine Bilirubin Negative, Urine Urobilinogen 4 H, Ur Leukocyte Esterase Negative, Urine RBC 0 SEEN, Urine WBC 0 SEEN, Ur Squamous Epith Cells 0 SEEN, Urine Bacteria 0 SEEN, Urine Mucus 0 SEEN 04/11/22 18:55: Lactic Acid 2.1 H* Micro: Microbiology 04/11/22 18:55 Nasal Secretion SARS-CoV-2 Antigen (Rapid) - Final Rhythm Strip Rhythm Strip: Sinus Tach Rate: 105 Assessment & Plan Assessment/Plan (1) Cellulitis of leg, right: PLAN: Plan The patient is a 71 y/o M w/ PMHx: Hx Ulcerative colitis on immunosuppressive vedolizumab, Chronic anemia/Fe deficiency anemia, Dementia unclear type with unclear behavioral disturbance history, Non-obstructive CAD, GERD, Morbid Obesity, HTN, HLD, PAF on eliquis, Diabetes mellitus type II, BEVERLY, Stage IV Glioblastoma s/p bifrontal craniotomy with guided resection of the R frontoparietal mass in addition to radiation with additional repeat follow-up craniotomy with chronic fatigue, imbalance, Chronic BL LE edema (Duplex US negative, BNP normal, 11/28/21 ECHO with normal LV size, mild concentric LVH, normal LV systolic function, stage I diastolic dysfunction with contrast injection performed with CHF as etiology ruled out), lightheadedness/dizziness ongoing since at least 09/2021 who now presents to the [facility] ED on 04/11/22 with history of several weeks of persistence diarrhea 4-5x daily and now onset low-grade temperatures without any recent abdominal pain, dyspnea above prior, occasional dry cough with incidentally noted RLE erythema. #1. Fatigue, malaise, failure to thrive in adult secondary to persistent Diarrhea, Potential Acute Gastroenteritis with associated Low Grade T, Possible C-difficile Colitis although lower suspicion as well as #2, #3, #4, #5, #6: Will admit to [facility], hold IVFs given #6 given UA with normal SG with no obvious concern dehydration, obtain c diff to be cautious although recent outpatient 03/19/22 c-diff testing negative, stool cx, O+P with repeat AM CBC, obtain full respiratory viral panel, PRN anti-emetics. Maintain on fall precautions given history of chronic imbalance secondary to #2. #2. RLE Extremity Cellulitis: Wlil maintain on IV Unasyn, wplan repeat CBC in AM, continue affected extremity elevation above heart when seated and in bed, monitor erythema outline with VS checks. Continue treatment #5 as noted. #3. Hypokalemia: Admission K+ 3.4, magnesium level requested, supplementation given, repeat level in AM. #4. Lactic acidosis: Lactic acid 2.1, possibly secondary to GI losses, continue judicious hydration as noted above, trend per facility protocol. #5. Acute Thrombocytopenia, unclear etiology: Admission Plts 57, most recent noted prior in [employer] [facility] system 04/06/22 Plts 40 however noted to have been 199 on 03/23/22, following with Dr. Jad Schultz who obtained these labs, will causiously continue his anticoagulation therapy, repeat CBC in AM. #6. Severe BL LE Edema, Suspect likely secondary to chronic steroids usage with #6, Lower Suspicion CHF given recent outpatient Cardiology directed evaluation/work-up: Outpatient Cardiology evaluation with recent BL LE duplex US negative, BNP normal, 11/28/21 ECHO with normal LV size, mild concentric LVH, normal LV systolic function, stage I diastolic dysfunction with contrast injection performed with CHF as etiology ruled out, will place snug ENMANUEL wraps, elevate BL LE and will pulse dose with IV lasix with close renal fx monitoring. Given underlying history may need to consider abdominal/pelvic imaging for potential compressive etiology. #7. Stage IV Glioblastoma w/ recurrence noted < 12 months: Patient s/p bifrontal craniotomy with guided resection of the R frontoparietal mass in addition to radiation with additional repeat follow-up craniotomy with chronic fatigue, imbalance, Chronic BL LE edema (Duplex US negative, BNP normal, 11/28/21 ECHO with normal LV size, mild concentric LVH, normal LV systolic function, stage I diastolic dysfunction with contrast injection performed with CHF as etiology ruled out), lightheadedness/dizziness ongoing since at least 09/2021, maintained on lomustine/decadron regimen, encourage continued follow-up with Oncology/Neurosurgery with last tumor board 03/04/22 with recommended continued on lomustine/decadron regimen and q 3 month imaging. #8. Nonobstructive CAD: We will continue patient home Eliquis, lisinopril, not on beta-ben therapy nor statin therapy, defer to outpatient as patient is following closely with cardiology. #9. Chronic anemia/Fe deficiency anemia: Admission hemoglobin 12.4, most recent lab noted prior in [facility] 04/06/22 Hgb 12.2, 03/23/22 Hgb 11.3, continue supplementation, trend. #10. Hypertension: Continue home regimen including Lasix, lisinopril with hold parameters as needed, PRN hydralazine. #11. Hyperlipidemia: Not on statin therapy, defer to outpatient. #12. PAF: We will continue patient home sotalol as well as Eliquis regimen. #13. Diabetes mellitus type II: Hold oral home regimen, ADA diet, accu checks w/ ISS. #14. Dementia unclear type with unclear behavioral disturbance history: Suspect likely related to underlying history of glioblastoma with surgical intervention, continue memantine regimen, complicates presentation, maintain on fall precautions. #15. Morbid Obesity: Weight loss and lifestyle changes encouraged. Patient per review of records has had weight gain moreso since 11/2021. #16. GERD: We will continue patient on PPI. #17. BEVERLY: CPAP nightly. #18. DVT prophylaxis: SCDs, Enmanuel wraps given chronic lower extremity swelling, continue home Eliquis regimen cautiously given thrombocytopenia and significant gait and balance. #19. CODE status: Patient DASHAWN is his and his son and living will is not currently in place but encouraged him to discuss these items with case management. Discussed CODE status at length including difference between FULL code, DNR-CCA and DNR-CC status. Following discussions about the differences in these status which has never been discussed and following current discussions will maintain full CODE STATUS but he and his and family will discuss especially given his poor prognosis and potentially change this. Advanced Care Planning Face to Face Time: 16 minutes. Charges/Coding Visit Charges Inpatient E&M: 31222 Init Hosp L3 Procedures Hospitalists Procedures: 08759 Advncd Care Plan 30 Min
[2022-04-11] MEDS: Acetaminophen 500 MG Tablet 1000 MG PO (20:21)
[2022-04-11 21:05] LABS: Reflex Troponin-HS? (from REC) Y
[2022-04-11 22:02] LABS: Phosphorus 2.9 mg/dL (2.5-4.9)
[2022-04-11 22:22] LABS: Magnesium 1.4 mg/dL (1.6-2.6); Troponin-I HS 9 pg/mL (3.0-78.0)
[2022-04-11] MEDS: Furosemide 40 MG/4 ML Vial IV (22:27)
[2022-04-11] MEDS: Sotalol Hydrochloride 80 MG Tablet 120 MG PO (22:28)
[2022-04-11] MEDS: dexAMETHasone 4 MG Tablet 2 MG PO (22:28)
[2022-04-11] MEDS: APIXABAN 5 MG TABLET PO (22:30)
[2022-04-11] MEDS: Memantine Hydrochloride 10 MG Tablet PO (22:30)
--- NOTE | 2022-04-11 22:30 | CPS ---
[2205] Pt. doesn't have home CPAP unit with him tonight. When offered if he'd like to wear one of ours for the night, he politely refused and stated that he'd just wear 2L at night for comfort.
[2022-04-11] MEDS: Potassium Chloride Oral Tablet 20 MEQ 40 MEQ PO (22:33)
[2022-04-11] MEDS: Insulin Lispro 100 UNIT/ML INSULN.PEN SC (22:42)
[2022-04-11 22:55] LABS: Bedside Glucose 173 mg/dL (74-106)
[2022-04-11 23:05] LABS: Reflex Lactate? Y
--- NOTE | 2022-04-11 23:33 | CPS ---
[2257] 2L NC initiated for comfort while pt. sleeps.
[2022-04-12 00:49] LABS: Lactic Acid 2.2 mmol/L (0.4-1.9)
[2022-04-12 04:33] VITALS: BP 107/44; PULSE 89; RESP 16; TEMP 37.3; O2SAT 93
[2022-04-12 06:23] LABS: Absolute Lymphocyte Count 0.97 X10^3/uL (0.83-4.51); Absolute Neutrophil Count 6.2 X10^3/uL (2.0-7.7); Basophil# 0.01 X10^3/uL; Basophil% 0.1 % (0-1); Hematocrit 32.7 % (40-54); Hemoglobin 10.8 g/dL (13.0-16.5); Lymphocyte # 0.97 X10^3/ul (0.83-4.51); Lymphocyte % 12.6 % (19-41); Mean Corpuscular Hgb 34.6 pg (27.0-32.0); Mean Corpuscular Volume 104.8 fL (80-94); Monocyte# 0.26 X10^3/uL; Monocyte% 3.4 % (0-10); NRBC Flagged by Analyzer 0 % (0-5); Neutrophil # 6.23 X10^3/uL (2.7-7.7); Neutrophil % 81.3 % (47-70); POSITIVE COUNT YES; POSITIVE MORPHOLOGY YES; Platelet Count 53 K/mm3 (150-450); RBC Distribution Width SD 79.7 fl (35.1-43.9); Red Blood Count 3.12 M/mm3 (4.6-6.2); White Blood Count 7.7 K/mm3 (4.4-11.0)
[2022-04-12] MEDS: Insulin Lispro 100 UNIT/ML INSULN.PEN SC ×4 (06:37→22:01)
[2022-04-12 06:43] LABS: Differential Indicated SCAN CRITERIA MET
[2022-04-12 06:55] LABS: ALB/GLOB Ratio 0.9 RATIO (0.9-2.4); AST(SGOT) 20 U/L (15-37); Alanine Aminotransfer ALT/SGPT 29 U/L (16-61); Albumin, Serum 2.6 g/dL (3.2-5.0); Alkaline Phosphatase 34 U/L (45-117); Anion Gap 6 (5-15); BUN 14 mg/dL (7-18); BUN/Creat Ratio 26.6 RATIO (10-20); Calcium,Total 8.4 mg/dL (8.5-10.1); Chloride 105 mmol/L (98-107); Creatinine, Serum 0.53 mg/dL (0.70-1.30); EST Glomerular Filtration Rate 164 mL/min (>60); Est Glom Filt Rate - Afr Amer 199 mL/min (>60); Glucose 170 mg/dL (74-106); Potassium 3.5 mmol/L (3.5-5.1); Protein, Total 5.6 g/dL (6.4-8.2); Sodium Level 140 mmol/L (136-145)
[2022-04-12 07:15] LABS: Bedside Glucose 161 mg/dL (74-106)
[2022-04-12 07:27] VITALS: O2SAT 92
[2022-04-12 07:43] LABS: Anisocytosis 2+; Platelet Estimate MKD DEC (ADEQ)
[2022-04-12 09:19] VITALS: BP 113/56; PULSE 91; RESP 18; TEMP 37.4; O2SAT 96
[2022-04-12] MEDS: Sotalol Hydrochloride 80 MG Tablet 120 MG PO ×2 (09:25→22:01)
[2022-04-12] MEDS: Menthol/Lanolin/Calamine/Znox 113 GM Tube 1 APPLIC TOPICAL ×2 (09:26→22:05)
[2022-04-12] MEDS: dexAMETHasone 4 MG Tablet 2 MG PO ×2 (09:26→22:01)
[2022-04-12] MEDS: Furosemide 40 MG/4 ML Vial IV ×2 (09:27→18:46)
[2022-04-12] MEDS: APIXABAN 5 MG TABLET PO ×2 (09:27→22:02)
[2022-04-12] MEDS: Pantoprazole Sodium 20 MG Tablet PO (09:27)
[2022-04-12] MEDS: Memantine Hydrochloride 10 MG Tablet PO ×2 (09:27→22:03)
[2022-04-12 10:05] LABS: Magnesium 1.9 mg/dL (1.6-2.6)
[2022-04-12 11:45] LABS: Bedside Glucose 206 mg/dL (74-106)
--- NOTE | 2022-04-12 12:29 | PCM.PN.HOSP ---
Documented by User: Joyce Dye NP, STACK MATCHER-C 04/12/22 12:41 Subjective Subjective Patient seen and examined. Reports mild right lower extremity discomfort. Denies fever, chills. Denies other symptoms or complaints. Objective Data Objective Data Vital Signs: Vital Signs Temp Pulse Resp BP Pulse Ox O2 Del Method O2 Flow Rate 99.3 F H 91 18 113/56 L 96 Room Air 2 04/12/22 09:19 04/12/22 09:19 04/12/22 09:19 04/12/22 09:19 04/12/22 09:19 04/12/22 11:00 04/11/22 23:58 Oxygen Flow Rate (L/min) 2 Oxygen Delivery Method Room Air Weight: 261 lb 11.019 oz Body Mass Index (BMI) 38.9 Intake & Output: Intake and Output for Last 24 Hours 04/10/22 04/11/22 04/12/22 23:59 23:59 23:59 Intake Total 212 / 212 1828 / 1828 Output Total 450 / 450 1400 / 1400 Balance -238 / -238 428 / 428 Lab / Micro Data Result Diagrams: 04/12/22 06:00 04/12/22 06:00 Labs: Laboratory Results - last 24 hr 04/11/22 18:00: WBC 7.1, RBC 3.52 L, Hgb 12.4 L, Hct 36.4 L, MCV 103.4 H, MCH 35.2 H, MCHC 34.1, RDW Std Deviation 79.9 H, RDW Coeff of Feroz 21.3 H, Plt Count 57 L, MPV 9.2, Immature Gran % (Auto) 0.400, Neut % (Auto) 81.0 H, Lymph % (Auto) 15.5 L, [place] % (Auto) 3.0, Eos % (Auto) 0.0, Baso % (Auto) 0.1, Absolute Neuts (auto) 5.8, Absolute Lymphs (auto) 1.10, Nucleated RBC % 0, Differential Comment SCANNED, Platelet Estimate MOD DEC, Anisocytosis 2+, Microcytosis 1+, Macrocytosis 1+ 04/11/22 18:00: Sodium 142, Potassium 3.4 L, Chloride 106, Carbon Dioxide 28.0, Anion Gap 8, BUN 16, Creatinine 0.50 L, Estim Creat Clear Calc 66.50, Est GFR (MDRD) Af Amer 211, Est GFR (MDRD) Non-Af 175, BUN/Creatinine Ratio 32.1 H, Glucose 152 H, Calcium 8.6, Total Bilirubin 2.30 H, AST 15, ALT 28, Alkaline Phosphatase 39 L, Troponin I High Sens 5, Total Protein 6.3 L, Albumin 3.2, Globulin 3.1, Albumin/Globulin Ratio 1.0 04/11/22 18:00: B-Natriuretic Peptide 76.9 04/11/22 18:00: Phosphorus 2.9 04/11/22 18:40: Urine Color Yellow, Urine Clarity Clear, Urine pH 8.0, Ur Specific [place] 1.010, Urine Protein Negative, Urine Glucose (UA) Normal, Urine Ketones Negative, Urine Occult Blood Negative, Urine Nitrite Negative, Urine Bilirubin Negative, Urine Urobilinogen 4 H, Ur Leukocyte Esterase Negative, Urine RBC 0 SEEN, Urine WBC 0 SEEN, Ur Squamous Epith Cells 0 SEEN, Urine Bacteria 0 SEEN, Urine Mucus 0 SEEN 04/11/22 18:55: Lactic Acid 2.1 H* 04/11/22 21:40: Magnesium 1.4 L, Troponin I High Sens 9 04/11/22 22:38: POC Glucose 173 H 04/11/22 23:45: Lactic Acid 2.2 H* 04/12/22 06:00: WBC 7.7, RBC 3.12 L, Hgb 10.8 L, Hct 32.7 L, MCV 104.8 H, MCH 34.6 H, MCHC 33.0, RDW Std Deviation 79.7 H, RDW Coeff of Feroz 21.0 H, Plt Count 53 L, MPV 9.0, Immature Gran % (Auto) 2.600 H, Neut % (Auto) 81.3 H, Lymph % (Auto) 12.6 L, [place] % (Auto) 3.4, Eos % (Auto) 0.0, Baso % (Auto) 0.1, Absolute Neuts (auto) 6.2, Absolute Lymphs (auto) 0.97, Nucleated RBC % 0, Platelet Estimate MKD DEC, Anisocytosis 2+ 04/12/22 06:00: Sodium 140, Potassium 3.5, Chloride 105, Carbon Dioxide 29.0, Anion Gap 6, BUN 14, Creatinine 0.53 L, Estim Creat Clear Calc 66.50, Est GFR (MDRD) Af Amer 199, Est GFR (MDRD) Non-Af 164, BUN/Creatinine Ratio 26.6 H, Glucose 170 H, Calcium 8.4 L, Total Bilirubin 3.30 H, AST 20, ALT 29, Alkaline Phosphatase 34 L, Total Protein 5.6 L, Albumin 2.6 L, Globulin 3.0, Albumin/Globulin Ratio 0.9 04/12/22 06:35: POC Glucose 161 H 04/12/22 09:48: Magnesium 1.9 04/12/22 11:13: POC Glucose 206 H Micro: Microbiology 04/11/22 22:04 Mucosa - Nose Respiratory Panel (PCR) - Final 04/11/22 18:55 Nasal Secretion SARS-CoV-2 Antigen (Rapid) - Final Radiography Diagnostic Testing: Radiology Impression Chest X-Ray 04/11/22 19:19 IMPRESSION: No acute findings. Electronically Signed: Mary Andrade MD at 21:49 EDT Reading Location ID and State: [id number] / Tel , Service support , Rhythm Strip Rhythm Strip: Sinus Tach Rate: 105 Physical Exam Const alert, oriented x3 and no apparent distress Orientation / Consciousness: awake, oriented to person, oriented to place and oriented to time HEENT normocephalic and moist oral mucous membranes Eyes PERRL, EOMs intact bilaterally and conjunctivae normal Neck no lymphadenopathy Resp normal respiratory effort and clear to auscultation bilaterally Cardio regular rate, regular rhythm and no murmurs Peripheral Pulses: pulses 2+ throughout GI normal to inspection, nondistended, normoactive bowel sounds, non-tender and non-distended Extremity normal to inspection Skin no rashes or lesions noted Skin Narrative: Right lower extremity cellulitis, not visualized at this time. Enmanuel wraps in place. Lesions: no lesions Rashes: no rashes Trauma: no lacerations or abrasions Neuro CN's II-XII intact bilaterally, no focal motor deficits, no sensory deficits noted and deep tendon reflexes 2+ bilaterally Psych mental status grossly normal and affect normal Assessment & Plan Assessment/Plan (1) Cellulitis of leg, right: PLAN: Plan 1. Right lower extremity cellulitis-IV Unasyn. 2. Failure to thrive-PT/OT. Case management consult. 3. Persistent diarrhea, likely viral gastroenteritis-no further diarrhea since admission. 4. Stage IV glioblastoma-status post resection and radiation. Continue outpatient follow-up. On Decadron, lomustine. 5. Chronic lower extremity edema-Enmanuel wrap's bilateral lower extremities. Previous echo with normal EF, stage I diastolic dysfunction. Lower extremity duplex negative. 6. Nonobstructive CAD-continue Eliquis, lisinopril. 7. Chronic anemia/iron deficiency anemia-appears stable. Trend CBC. 8. Hypertension-stable, continue current regimen. 9. Paroxysmal atrial fibrillation-on Eliquis, sotalol. 10. Type 2 diabetes tooqsflq-Ugyk-Bcqlo with sliding scale insulin. 11. Dementia, unclear behavioral disturbance history-on memantine. 12. BEVERLY-continue CPAP. 13. GERD-continue PPI. 14. Morbid obesity-encouraged diet and lifestyle modifications. 15. Thrombocytopenia-unclear etiology. Trend CBC. May need hematology evaluation if further trends down. DVT prophylaxis-Eliquis This patient was seen by Joyce Dye NP-C under the supervision of Dr. Hu. Time spent examining patient, reviewing data and subsequent management of care: 15 minutes Documented by User: Dr. Tyson Hu DO 04/12/22 14:20 Objective Data Lab / Micro Data Result Diagrams: 04/12/22 06:00 04/12/22 06:00 Assessment & Plan Assessment/Plan (1) Cellulitis of leg, right: Charges/Coding Addendum Addendum: Patient was seen and examined today independently of Joyce Dye, he was admitted yesterday for cellulitis of his right lower leg, at the time of my examination his is in the room, she states that the patient has been having severe swelling in his legs for months, he is on Lasix at home but only 40 mg daily. Patient had an echocardiogram performed in November of this year which showed a normal EF, PA pressure could not be estimated however. On examination he appeared in no distress, he appeared older than his stated age. Vital signs as documented. Skin warm and dry and without overt rashes. Neck without JVD, neck was supple, trachea midline, thyroid was normal. Lungs clear bilaterally, normal air movement was noted. Heart exam notable for regular rhythm, normal sounds and absence of murmurs, rubs or gallops. Abdomen unremarkable and without evidence of organomegaly, masses, or abdominal aortic enlargement. Bowel sounds are present, abdomen is not distended. Extremities severe lower leg pitting edema was noted to be present on examination, there is some redness over the anterior tibial area of the right leg along with some warmth there,, no cyanosis was noted, no clubbing was noted. Neuro: Cranial nerves II through XII are grossly intact, no focal motor deficits were noted, sensation to light touch and pinprick intact, motor exam 5/5 throughout. Psych: Patient is alert and oriented x3, he does not appear anxious or depressed, he does not appear agitated. Impression: #1 right lower leg cellulitis-patient's antibiotic will be changed to Rocephin for ease of administration and limitation of fluid administration. #2 severe lower extremity edema-exact etiology unclear, could be due to pulmonary hypertension (patient has a history of sleep apnea) I will continue the patient on IV Lasix, he will need his Lasix dosage increased when he is discharged home. #3 glioblastoma multiforme-this tumor has reoccurred according to his , he follows up with an oncologist in [place]. #4 obstructive sleep apnea-patient has his own CPAP machine in his room #5 elevated bilirubin-etiology unclear, patient's CMP will be rechecked tomorrow #6 paroxysmal atrial fibrillation-patient is on rate control medication as well as Eliquis #7 type 2 diabetes-patient's blood sugars will be monitored, sliding scale insulin will be administered as as indicated I talked to the patient's about discharge planning, she was unsure if she wanted him to go to to a [facility] facility for short-term rehab services or take him home at the time of discharge. PT and OT will see the patient I have reviewed Joyce Dye's progress note including her medical assessment and plan of care and with the above additions endorse it. Total clinical time spent by myself addressing the patient's medical issues, reviewing the data, and collaborating with patient's care team: 25 minutes Visit Charges Inpatient E&M: 19883 Subs Hosp L3
[2022-04-12 16:54] VITALS: BP 93/47; PULSE 67; RESP 16; TEMP 36.6; O2SAT 94
[2022-04-12 17:10] LABS: Bedside Glucose 194 mg/dL (74-106)
[2022-04-12] MEDS: Ceftriaxone 1 GM/50 ML BAG IV (18:46)
[2022-04-12 19:13] VITALS: BP 105/72
[2022-04-12 21:51] VITALS: BP 102/63; PULSE 74; RESP 16; TEMP 37.4; O2SAT 96
[2022-04-12 22:25] LABS: Bedside Glucose 178 mg/dL (74-106)
[2022-04-13 06:27] VITALS: BP 110/60; PULSE 66; RESP 16; TEMP 37.3; O2SAT 94
[2022-04-13 06:27] LABS: Hematocrit 25.7 % (40-54); Hemoglobin 8.6 g/dL (13.0-16.5); Mean Corp Hgb Conc 33.5 g/dL (32-36); Mean Corpuscular Hgb 35.1 pg (27.0-32.0); Mean Corpuscular Volume 104.9 fL (80-94); Mean Platelet Vol. 9.2 fl (6.2-12.0); POSITIVE COUNT YES; POSITIVE MORPHOLOGY YES; Platelet Count 54 K/mm3 (150-450); RBC Distribution Width CV 20.3 % (11.6-14.6); RBC Distribution Width SD 77.6 fl (35.1-43.9); Red Blood Count 2.45 M/mm3 (4.6-6.2); White Blood Count 6.5 K/mm3 (4.4-11.0)
[2022-04-13 06:32] LABS: Differential Indicated MANUAL DIFF
[2022-04-13 06:54] LABS: ALB/GLOB Ratio 0.7 RATIO (0.9-2.4); AST(SGOT) 9 U/L (15-37); Alanine Aminotransfer ALT/SGPT 19 U/L (16-61); Albumin, Serum 2.1 g/dL (3.2-5.0); Alkaline Phosphatase 38 U/L (45-117); Anion Gap 7 (5-15); BUN 16 mg/dL (7-18); Calcium,Total 8.5 mg/dL (8.5-10.1); Chloride 103 mmol/L (98-107); Creatinine, Serum 0.33 mg/dL (0.70-1.30); EST Glomerular Filtration Rate 279 mL/min (>60); Est Glom Filt Rate - Afr Amer 337 mL/min (>60); Globulin 3.2 g/dL (2.2-4.2); Glucose 175 mg/dL (74-106); Potassium 3.2 mmol/L (3.5-5.1); Protein, Total 5.3 g/dL (6.4-8.2); Sodium Level 139 mmol/L (136-145)
[2022-04-13 06:59] LABS: Anisocytosis 2+; Macrocytosis 2+
[2022-04-13 07:00] LABS: Platelet Estimate MOD DEC (ADEQ)
[2022-04-13 07:03] LABS: Absolute Lymphocyte Count 0.91 X10^3/uL (0.83-4.51); Absolute Neutrophil Count 5.3 X10^3/uL (2.0-7.7); Total Cells Counted 100 (MANUAL DIFF)
[2022-04-13 07:04] LABS: Eosinophil 1 % (0-5); Lymphocyte 14 % (19-41); Metamyelocyte 2 % (0-1); Monocyte 1 % (0-10); Myelocyte 1 % (0-0); Neutrophil-Band 10 % (0-5); Neutrophil-Segmented 71 % (47-70)
[2022-04-13 07:10] LABS: Bedside Glucose 146 mg/dL (74-106)
[2022-04-13 08:44] VITALS: BP 104/58; PULSE 75; RESP 20; TEMP 37; O2SAT 96
[2022-04-13] MEDS: Memantine Hydrochloride 10 MG Tablet PO ×2 (08:51→21:41)
[2022-04-13] MEDS: Pantoprazole Sodium 20 MG Tablet PO (08:51)
[2022-04-13] MEDS: APIXABAN 5 MG TABLET PO ×2 (08:51→21:41)
[2022-04-13] MEDS: Sotalol Hydrochloride 80 MG Tablet 120 MG PO ×2 (08:51→21:40)
[2022-04-13] MEDS: Menthol/Lanolin/Calamine/Znox 113 GM Tube 1 APPLIC TOPICAL ×2 (08:52→21:38)
[2022-04-13] MEDS: Lisinopril 5 MG Tablet PO ×2 (08:52→21:41)
[2022-04-13] MEDS: Furosemide 40 MG/4 ML Vial IV ×2 (08:52→16:55)
[2022-04-13] MEDS: Potassium Chloride Oral Tablet 20 MEQ 60 MEQ PO (08:52)
[2022-04-13] MEDS: dexAMETHasone 4 MG Tablet 2 MG PO ×2 (08:52→21:39)
[2022-04-13] MEDS: Ceftriaxone 1 GM/50 ML BAG IV (11:04)
[2022-04-13] MEDS: Insulin Lispro 100 UNIT/ML INSULN.PEN SC ×3 (11:04→21:46)
--- NOTE | 2022-04-13 11:30 | CASEMGMT ---
PRETTY SINGH Assessment: Face to Face with pt for initial transition planning/care coordination assessment. RN FRANCISCO introduced self and role at [facility], pt voices understanding and consents to assessment. Pt is A/O x4 and answers all questions appropriately at this time. Pt lying in bed in no distress with at bedside. Care providers, pharmacy, and demographics verified/updated. Admitting Dx: RLE cellulitis, intractable diarrhea, FTT adult PCP: [facility] Specialists:Yariel, cardio; Aries, GI; Marion, onc at ; Gilson, brain surgeon Preferred Pharmacy: [facility] Insurance: [employer] Prescription Benefit: yes LW/HPOA: Pt denies having a LW/DPOA and denies need for info regarding AD. states they are in the process of having these items drawn up with the planetarium technician currently. She is aware she can bring them in to be scanned into the chart once completed. LNOK: Anni Dela Cruz, Living Arrangements: Pt lives with in a mobile home with no steps to enter. Pt had been independent with ADL's prior to November. At this time, pt has had swelling and had needed help with ADL's from . Transportation: Pt provides him with transportation. DME/HHC/SNF: Pt has a BGM with appropriate supplies, rollator, ww, straight cane, shower chair, toilet riser, lift chair and an adjustable bed without rails. Pt has had [facility] in the past. Pt denies SNF stays. Pt states if pt swelling is completely gone, he can return home. She states with the swelling, it is too much to care for him. She would like him to get stronger before returning home. Made pt and aware that currently pt is medically ready for dc but needing the assist of 2 people. Pt is interested in seeing a list of facilities that take his insurance. Pt states she does not want [facility]. They are not sure of the plan as far as chemo at this point, if it will continue or not. Pt states no further concerns/needs. CM to follow. Advised pt to ask CM if any further question/concerns/needs arise, voices understanding. Pt Goal: S/t therapy prior to returning home Plan: S/t therapy prior to returning home, updated ADWOA. Pt home address is: [id number], [place], [place]
[2022-04-13 11:35] LABS: Bedside Glucose 218 mg/dL (74-106)
[2022-04-13 12:00] VITALS: O2SAT 92
--- NOTE | 2022-04-13 12:02 | PN.HOSP_ITS ---
Documented by User: Joyce Dye NP, CERTIFIED PEDIATRIC NURSE PRACTITIONER-C 04/13/22 12:10 Subjective Subjective Patient seen and examined. Right lower extremity redness improved. Patient denies fever, chills. Reports right lower extremity discomfort is improving as well. Requiring significant assistance. looking at SNF options. Objective Data Objective Data Vital Signs: Vital Signs Temp Pulse Resp BP Pulse Ox O2 Del Method O2 Flow Rate 98.6 F 75 20 H 104/58 L 96 Room Air 2 04/13/22 08:44 04/13/22 08:44 04/13/22 08:44 04/13/22 08:44 04/13/22 08:44 04/13/22 08:45 04/11/22 23:58 Oxygen Flow Rate (L/min) 2 Oxygen Delivery Method Room Air Weight: 261 lb 7.492 oz Body Mass Index (BMI) 38.9 Intake & Output: Intake and Output for Last 24 Hours 04/11/22 04/12/22 04/13/22 23:59 23:59 23:59 Intake Total 212 / 212 2630 / 2630 752 / 752 Output Total 450 / 450 1700 / 1900 1375 / 1375 Balance -238 / -238 930 / 730 -623 / -623 Lab / Micro Data Result Diagrams: 04/13/22 05:55 04/13/22 05:55 Labs: Laboratory Results - last 24 hr 04/12/22 16:40: POC Glucose 194 H 04/12/22 21:50: POC Glucose 178 H 04/13/22 05:55: WBC 6.5, RBC 2.45 L, Hgb 8.6 L, Hct 25.7 L, MCV 104.9 H, MCH 35.1 H, MCHC 33.5, RDW Std Deviation 77.6 H, RDW Coeff of Feroz 20.3 H, Plt Count 54 L, MPV 9.2, Neut % (Auto) Not Reportable, Absolute Neuts (auto) 5.3, Absolute Lymphs (auto) 0.91, Total Counted 100, Neutrophils % (Manual) 71 H, Band Neutrophils % 10 H, Lymphocytes % (Manual) 14 L, Monocytes % (Manual) 1, Eosinophils % (Manual) 1, Metamyelocytes % 2 H, Myelocytes % 1 H, Diff Path Review May foll, Platelet Estimate MOD DEC, Anisocytosis 2+, Macrocytosis 2+ 04/13/22 05:55: Sodium 139, Potassium 3.2 L, Chloride 103, Carbon Dioxide 29.0, Anion Gap 7, BUN 16, Creatinine 0.33 L, Estim Creat Clear Calc 66.50, Est GFR (MDRD) Af Amer 337, Est GFR (MDRD) Non-Af 279, BUN/Creatinine Ratio 48.0 H, Glucose 175 H, Calcium 8.5, Total Bilirubin 1.70 H, AST 9 L, ALT 19, Alkaline Phosphatase 38 L, Total Protein 5.3 L, Albumin 2.1 L, Globulin 3.2, Albumin/Globulin Ratio 0.7 L 04/13/22 06:29: POC Glucose 146 H 04/13/22 11:03: POC Glucose 218 H Micro: Microbiology 04/11/22 22:04 Mucosa - Nose Respiratory Panel (PCR) - Final 04/11/22 18:55 Nasal Secretion SARS-CoV-2 Antigen (Rapid) - Final Rhythm Strip Rhythm Strip: Sinus Tach Rate: 105 Physical Exam Const alert, oriented x3 and no apparent distress HEENT normocephalic and moist oral mucous membranes Eyes PERRL, EOMs intact bilaterally and conjunctivae normal Neck no lymphadenopathy Resp normal respiratory effort and clear to auscultation bilaterally Cardio regular rate, regular rhythm and no murmurs Peripheral Pulses: pulses 2+ throughout GI normal to inspection, nondistended, normoactive bowel sounds, non-tender and non-distended Extremity normal to inspection General Extremity: edema bilateral lower extremity Skin no rashes or lesions noted Skin Narrative: Right lower extremity redness improved. Lesions: no lesions Rashes: no rashes Trauma: no lacerations or abrasions Neuro CN's II-XII intact bilaterally, no focal motor deficits, no sensory deficits noted and deep tendon reflexes 2+ bilaterally Psych mental status grossly normal and affect normal Assessment & Plan Assessment/Plan (1) Cellulitis of leg, right: PLAN: Plan 1.? Right lower extremity cellulitis-IV Rocephin. Improving. 2.? Failure to thrive-PT/OT.? Case management/social work consult. Plan for SNF pending acceptance. 3.? Persistent diarrhea, likely viral gastroenteritis-no further diarrhea since admission. 4. Stage IV glioblastoma-status post resection and radiation.? Continue outpatient follow-up.? On Decadron, lomustine. 5. Severe Chronic lower extremity edema-Enmanuel wrap's bilateral lower extremities.? Previous echo with normal EF, stage I diastolic dysfunction.? Lower extremity duplex negative. Continue IV Lasix. Increase home Lasix regimen to 40 mg twice daily at discharge. 6. Nonobstructive CAD-continue Eliquis, lisinopril. 7. Chronic anemia/iron deficiency anemia-appears stable.? Trend CBC. 8. Hypertension-stable, continue current regimen. 9. Paroxysmal atrial fibrillation-on Eliquis, sotalol. 10. Type 2 diabetes [id number]-Afyb-[id number] with sliding scale insulin. 11. Thrombocytopenia-unclear etiology.? Trend CBC.? Recommend outpatient follow- up with hematology. 12. BEVERLY-continue CPAP. 13. GERD-continue PPI. 14. Morbid obesity-encouraged diet and lifestyle modifications. DVT prophylaxis-Eliquis This patient was seen by Joyce Dye NP-C under the supervision of Dr. Forbes. Discharge planning: Awaiting acceptance to SNF. Time spent examining patient, reviewing data and subsequent management of care: 14 minutes Documented by User: Dr. Elizabeth Forbes MD 04/13/22 15:10 Objective Data Lab / Micro Data Result Diagrams: 04/13/22 05:55 04/13/22 05:55 Assessment & Plan Assessment/Plan (1) Cellulitis of leg, right: Charges/Coding Addendum Addendum: This patient was seen in conjunction with Joyce Dye NP. I have independently interviewed and examined the patient and reviewed pertinent historical, laboratory, and other data. I have reviewed her note and concur with her documentation Patient was seen and examined. Complains of feeling tired. Swelling in lower extremities improving with Enmanuel wraps. Denies any fever or chills. Physical Exam: Gen: Comfortable, not pale, not jaundiced CVS:HS I +II, regular, no murmurs RESP: Diminished at lung bases GI: BS present and normal, soft, nontender, no palpable organs EXT:No edema ASSESSMENT: 1. Acute right lower extremity cellulitis 2. Debility 3. Stage IV glioblastoma status postresection radiation 4. CAD/hypertension/paroxysmal atrial fibrillation 5. Type II DM 6. Chronic heart failure preserved EF 7. Hypokalemia 8. Chronic thrombocytopenia 9. BEVERLY on CPAP Plan: Continue with IV Lasix, IV antibiotics (day 3) We will switch to oral Keflex from tomorrow to make 1 week total Continue PT and OT evaluation discharge planning to retirement facility Time spent coordinating all aspects of patient's care, discussing with nursin minutes Visit Charges Inpatient E&M: 83956 Subs Hosp L2
[2022-04-13 12:11] LABS: Pathologist Review Reviewed
--- NOTE | 2022-04-13 12:20 | CASEMGMT ---
Social Work SW met with pt and his to discuss discharge plans. Pt referred to his to make decisions but agreeable to going to SNF for rehab. SW informed family that pt is not able to receive chemo treatment while at a SNF. Pt's stated he only takes 4 pills at the beginning of a 6 week cycle for chemo and they both appeared to be alright with client not having chemo treatment while he was in SNF. SW provided pt and with a list of half-way facilities in pt's insurance network, preferred geographic area and quality and resource use date given to pt. Pt and his prefer 1.) [facility] or 2.) [facility]. Prudence Roman, discharge policy and planning manager, will send referral to [facility]. Plan: [facility], pending precert. DEVI Waddell
[2022-04-13 13:40] VITALS: BP 112/44; PULSE 67; RESP 18; TEMP 36.8; O2SAT 97
--- NOTE | 2022-04-13 13:42 | CASEMGMT ---
Discharge Dredge Boat Engineer Prudence Springer Drafting Teacher faxed over a referral to [facility]. Will follow up. Prudence Roman Discharge Dredge Boat Engineer
--- NOTE | 2022-04-13 15:15 | CASEMGMT ---
Discharge Brazing Machine Operator Prudence D/c Learning Services Coordinator called for an update. [facility] let Prudence know that the facility can't take Ax2 patients due to staffing. Prudence sent new PT/OT notes because it does not look like patient was Ax2 today. Plan: Awaiting acceptance at [facility] Prudence Roman Discharge Brazing Machine Operator
[2022-04-13 17:21] LABS: Bedside Glucose 192 mg/dL (74-106)
[2022-04-13 18:27] VITALS: BP 101/41; PULSE 78; RESP 20; TEMP 37; O2SAT 96
[2022-04-13 21:35] VITALS: BP 123/63; PULSE 76; RESP 18; TEMP 37.2; O2SAT 95
[2022-04-13] MEDS: MELATONIN 3 MG TABLET PO (21:38)
[2022-04-13 22:11] LABS: Bedside Glucose 227 mg/dL (74-106)
[2022-04-14 06:11] VITALS: BP 133/77; PULSE 74; RESP 18; TEMP 36.9; O2SAT 95
[2022-04-14] MEDS: Insulin Lispro 100 UNIT/ML INSULN.PEN SC ×2 (06:13→12:33)
[2022-04-14 06:33] LABS: Hematocrit 28.7 % (40-54); Hemoglobin 9.4 g/dL (13.0-16.5); Mean Corp Hgb Conc 32.8 g/dL (32-36); Mean Corpuscular Hgb 34.6 pg (27.0-32.0); Mean Corpuscular Volume 105.5 fL (80-94); Mean Platelet Vol. 9.6 fl (6.2-12.0); POSITIVE COUNT YES; POSITIVE MORPHOLOGY YES; Platelet Count 73 K/mm3 (150-450); RBC Distribution Width CV 19.9 % (11.6-14.6); RBC Distribution Width SD 77.9 fl (35.1-43.9); Red Blood Count 2.72 M/mm3 (4.6-6.2); White Blood Count 6.3 K/mm3 (4.4-11.0)
[2022-04-14 06:38] LABS: Differential Indicated MANUAL DIFF
[2022-04-14 06:55] LABS: Lymphocyte 17 % (19-41); Metamyelocyte 1 % (0-1); Monocyte 2 % (0-10); Neutrophil-Band 4 % (0-5); Neutrophil-Segmented 76 % (47-70); Platelet Estimate MOD DEC (ADEQ); Total Cells Counted 100 (MANUAL DIFF)
[2022-04-14 06:56] LABS: Anisocytosis 1+; Macrocytosis 1+; Microcytosis RARE
[2022-04-14 06:57] LABS: Absolute Lymphocyte Count 1.08 X10^3/uL (0.83-4.51); Absolute Neutrophil Count 5.1 X10^3/uL (2.0-7.7); Anion Gap 6 (5-15); BUN 17 mg/dL (7-18); BUN/Creat Ratio 36.7 RATIO (10-20); Calcium,Total 8.7 mg/dL (8.5-10.1); Chloride 105 mmol/L (98-107); Creatinine, Serum 0.46 mg/dL (0.70-1.30); EST Glomerular Filtration Rate 190 mL/min (>60); Est Glom Filt Rate - Afr Amer 230 mL/min (>60); Glucose 206 mg/dL (74-106); Lymphocyte # 1.08 X10^3/ul (0.83-4.51); Neutrophil # 5.07 X10^3/uL (2.7-7.7); Potassium 3.9 mmol/L (3.5-5.1); Sodium Level 138 mmol/L (136-145)
[2022-04-14 07:01] LABS: Bedside Glucose 185 mg/dL (74-106)
[2022-04-14 07:10] VITALS: PULSE 78; RESP 20
--- NOTE | 2022-04-14 08:02 | CASEMGMT ---
Discharge Decorative Cutting Machine Tender Prudence Diaz/micheal Nib Assembler called [facility] for an update. Notes were sent to the practitioner and waiting for approval or denial. Miller will call Prudence back when a decision is made. Will keep following up. Plan: Waiting acceptance at [facility] Prudence Roman Discharge Decorative Cutting Machine Tender
[2022-04-14 08:13] LABS: Hemoglobin A1c 6.2 % (3.8-5.6)
[2022-04-14 08:42] VITALS: O2SAT 93
[2022-04-14] MEDS: dexAMETHasone 4 MG Tablet 2 MG PO (09:04)
[2022-04-14] MEDS: Sotalol Hydrochloride 80 MG Tablet 120 MG PO (09:05)
[2022-04-14] MEDS: APIXABAN 5 MG TABLET PO (09:05)
[2022-04-14] MEDS: Pantoprazole Sodium 20 MG Tablet PO (09:06)
[2022-04-14] MEDS: Memantine Hydrochloride 10 MG Tablet PO (09:06)
--- NOTE | 2022-04-14 09:49 | CASEMGMT ---
Addendum entered by Prudence Roman 04/14/22 11:59: Called [facility] for an update on referral. TASHA is reviewing now and Arron will contact me when she gets an answer. Prudence Roman Discharge Temp Recruiter Addendum entered by Prudence Roman 04/14/22 10:44: Prudence sent over a referral to Arron at [facility]. D/c Residential Carpenter will follow up. Prudence Roman Discharge Temp Recruiter Original Note: Discharge Temp Recruiter Shelby from [employer] called Prudence Diaz/micheal Foreman. Shelby gave Prudence a pre-cert Auth. # [id number]. Pre-cert is good until 04/16/2022. Prudence Diaz/micheal Foreman called [facility] and left a message regarding referral. Veronika never told d/c permit review assistant patient was accepted. When d/c permit review assistant called this morning referral was still in review. Prudence diaz/micheal foreman is waiting for some confirmation and will keep ADWOA Travis update to date. Prudence Roman Discharge Temp Recruiter
--- NOTE | 2022-04-14 10:01 | TREXTCAR_ITS ---
Diet Diet Order/Speech Therapy: 04/12/22 11:48 Diet: Carbohydrate Controlled Is pt able to select menu?: Yes Routine Orders/Code Status Enema Type: Fleetz Enema Frequency: Daily PRN Suppository Type: Dulcolax 10mg Suppository Frequency: Daily PRN Routine Lab Work: - (Weekly CBC, BMP) Code Status: Full Code Wound(s) left leg: Wound Type: Abrasion rt upper yanes: Wound Type: small round area with dark center rt ankle area: Wound Type: small round area with dark center right buttock: Wound Type: small open area Suggestions for Active Care Change Position every (hours): 2 Times a day to sit in chair: 3 Therapies Physical Therapy: Eval and Treat Occupational Therapy: Eval and Treat Problem/Diagnosis (1) Cellulitis of leg, right: Status: Acute Code(s): L03.115 - Cellulitis of right lower limb Allergies/Procedures Done in Hospital Allergies prednisone Allergy (Severe, Verified 04/11/22 18:26) Anaphylaxis Procedures: None Type of Care/Length of Stay Estimated LOS: Convalescent Care Less Than 30 days Type of Care Needed: Skilled Rehab Potential: Fair Prognosis: Fair Additional Orders/Day of Discharge H&P will serve as current which was dated: 04/11/22 Day of Discharge: 04/14/22 Dietary and Speech Recommendations Dietitian Recommendations/Changes: will adjust diet to CHO controlled, no calorie restriction given stage IV glioblastoma; will consider ONS if PO intake at meals is poor. Discharge Plan Admission Admit Date/Time: 04/11/22 20:20 Primary Reason for Your Visit: RLE Cellulitis Attending Provider: Elizabeth Forbes Primary Care Provider: Shola Be Consulting Providers: Angela Valdes ; Tyson Hu Instructions Additional Instructions / Restrictions: Continue snug Enmanuel wraps bilateral lower extremities. Discharge Orders/Prescriptions Prescriptions: New cephalexin 500 mg Capsule 500 mg PO Q8 5 Days Qty: 15 0RF furosemide 40 mg Tablet 40 mg PO BIDLX Qty: 0 0RF Continued lisinopril 5 mg tablet 5 mg PO BID multivitamin tablet 1 tab PO QDAY metformin 500 mg tablet 500 mg PO BID memantine 10 mg tablet 10 mg PO BID Label Comments: take 1 tablet by mouth twice a day (START WITH ORAL CHEMO) ondansetron HCl 8 mg tablet 8 mg PO Q8H PRN (Reason: Nausea) pantoprazole 20 mg tablet,delayed release (DR/EC) 20 mg PO DAILY dexamethasone 2 mg tablet 2 mg PO BID lomustine 100 mg capsule 200 mg PO Q6W lomustine 10 mg capsule 20 mg PO Q6W sotalol 120 mg tablet 120 mg PO Q12H Qty: 180 3RF Eliquis 5 mg tablet 5 mg PO BID Qty: 60 10RF Discontinued furosemide 40 mg tablet 40 mg PO .COMPLEX Qty: 90 3RF Rx Instructions: 40 mg PO ; 40mg PO BID x3 days, then 40mg PO Daily; Referrals / Follow Up: Shola Be MD [Primary Care Provider] - In 1 Week Augusto Mcqueen NP, DIRECTOR OF GRADUATE ADMISSIONS-C [Nurse Practitioner] - Within 1 Month Disposition Disposition (needs filled in before D/C Order can be placed): Nursing Home Facility
--- NOTE | 2022-04-14 10:10 | PCM.DC.SUM ---
Documented by User: Joyce Dye NP, MANAGER MEDIA RELATIONS-C 04/14/22 10:16 Providers Date of Admission: 04/11/22 Date of Discharge: 04/14/22 Primary Care Physician: Dr. Shola Be MD Reason For Visit: RLE CELLULITIS, INTRACTABLE DIARRHEA, FTT ADULT Diagnosis Discharge Diagnosis (1) Cellulitis of leg, right: Status: Acute Code(s): L03.115 - Cellulitis of right lower limb Medications at Discharge Home Medications lisinopril 5 mg tablet 5 mg PO BID 12/06/17 multivitamin 1 tab PO QDAY 12/07/17 memantine 10 mg tablet 10 mg PO BID 06/19/21 metformin 500 mg tablet 500 mg PO BID 06/19/21 sotalol 120 mg tablet 120 mg PO Q12H #180 tabs 10/08/21 dexamethasone 2 mg tablet 2 mg PO BID 02/11/22 lomustine 10 mg capsule 20 mg PO Q6W 02/11/22 lomustine 100 mg capsule 200 mg PO Q6W 02/11/22 ondansetron HCl 8 mg tablet 8 mg PO Q8H PRN Nausea 02/11/22 pantoprazole 20 mg tablet,delayed release 20 mg PO DAILY 02/11/22 apixaban 5 mg tablet (Eliquis) 5 mg PO BID #60 tabs 03/16/22 cephalexin 500 mg capsule 500 mg PO Q8 5 days #15 caps 04/14/22 furosemide 40 mg tablet 40 mg PO BIDLX #0 tabs 04/14/22 Hospital Course Operations None Procedures None Summary of Care Provided Hospital Course: Patient is a 71-year-old male admitted 04/11/2022 due to failure to thrive, lower extremity edema and right lower extremity redness. 1.? Right lower extremity cellulitis-IV Rocephin during admission. Significantly improved. Transition to Keflex to complete course. 2.? Failure to thrive-PT/OT.? SNF at discharge for rehab. 3.? Persistent diarrhea, likely viral gastroenteritis-no further diarrhea since admission. 4. Stage IV glioblastoma-status post resection and radiation.? Continue outpatient follow-up.? On Decadron, lomustine. 5. Severe Chronic lower extremity edema-Enmanuel wrap's bilateral lower extremities.? Previous echo with normal EF, stage I diastolic dysfunction.? Lower extremity duplex negative.? IV Lasix during admission.? Increase home Lasix regimen to 40 mg twice daily at discharge. 6. Nonobstructive CAD-continue Eliquis, lisinopril. 7. Chronic anemia/iron deficiency anemia-appears stable.? 8. Hypertension-stable, continue current regimen. 9. Paroxysmal atrial fibrillation-on Eliquis, sotalol. 10. Type 2 diabetes mellitus-continue home regimen. 11. Thrombocytopenia-unclear etiology.? Trending up.? Recommend outpatient follow-up with hematology/oncology. 12. BEVERLY-continue CPAP. 13. GERD-continue PPI. 14. Morbid obesity-encouraged diet and lifestyle modifications. Physical Exam Const alert, oriented x3 and no apparent distress HEENT normocephalic and moist oral mucous membranes Eyes PERRL, EOMs intact bilaterally and conjunctivae normal Neck no lymphadenopathy Resp normal respiratory effort and clear to auscultation bilaterally Cardio regular rate, regular rhythm and no murmurs Peripheral Pulses: pulses 2+ throughout GI normal to inspection, nondistended, normoactive bowel sounds, non-tender and non-distended Extremity normal to inspection General Extremity: edema bilateral lower extremity Skin no rashes or lesions noted Skin Narrative: Right lower extremity redness improved. Lesions: no lesions Rashes: no rashes Trauma: no lacerations or abrasions Neuro CN's II-XII intact bilaterally, no focal motor deficits, no sensory deficits noted and deep tendon reflexes 2+ bilaterally Psych mental status grossly normal and affect normal Patient seen and examined prior to discharge. Physical assessment as noted above. Patient is stable for discharge with follow up recommendations as noted above. This patient was seen by RAKEL Morris under the supervision of Dr. Forbes. Time spent examining patient, reviewing data and subsequent management of care: 23 minutes Weight / BMI Weight Weight: 252 lb 3.341 oz Body Mass Index (BMI) 38.9 ABG / Lab / Microbiology Data Result Diagrams: 04/14/22 06:00 04/14/22 06:00 Laboratory: Laboratory Results - last 24 hr 04/13/22 05:55: Diff Path Review Reviewed 04/13/22 11:03: POC Glucose 218 H 04/13/22 16:54: POC Glucose 192 H 04/13/22 21:45: POC Glucose 227 H 04/14/22 06:00: WBC 6.3, RBC 2.72 L, Hgb 9.4 L, Hct 28.7 L, MCV 105.5 H, MCH 34.6 H, MCHC 32.8, RDW Std Deviation 77.9 H, RDW Coeff of Feroz 19.9 H, Plt Count 73 L, MPV 9.6, Neut % (Auto) Not Reportable, Absolute Neuts (auto) 5.1, Absolute Lymphs (auto) 1.08, Total Counted 100, Neutrophils % (Manual) 76 H, Band Neutrophils % 4, Lymphocytes % (Manual) 17 L, Monocytes % (Manual) 2, Metamyelocytes % 1, Diff Path Review May foll, Platelet Estimate MOD DEC, Anisocytosis 1+, Microcytosis RARE, Macrocytosis 1+ 04/14/22 06:00: Sodium 138, Potassium 3.9, Chloride 105, Carbon Dioxide 27.0, Anion Gap 6, BUN 17, Creatinine 0.46 L, Estim Creat Clear Calc 66.50, Est GFR (MDRD) Af Amer 230, Est GFR (MDRD) Non-Af 190, BUN/Creatinine Ratio 36.7 H, Glucose 206 H, Calcium 8.7 04/14/22 06:00: Hemoglobin A1c 6.2 H 04/14/22 06:13: POC Glucose 185 H Microbiology: Microbiology 04/11/22 22:04 Mucosa - Nose Respiratory Panel (PCR) - Final 04/11/22 18:55 Nasal Secretion SARS-CoV-2 Antigen (Rapid) - Final Meaningful Use Info Meaningful Use Diagnoses (Choose all that apply): None applicable Discharge Plan Admission Admit Date/Time: 04/11/22 20:20 Primary Reason for Your Visit: RLE Cellulitis Attending Provider: Elizabeth Forbes Primary Care Provider: Shola Be Consulting Providers: Angela Valdes ; Tyson Hu Instructions Additional Instructions / Restrictions: Continue snug Enmanuel wraps bilateral lower extremities. Discharge Orders/Prescriptions Prescriptions: New cephalexin 500 mg Capsule 500 mg PO Q8 5 Days Qty: 15 0RF furosemide 40 mg Tablet 40 mg PO BIDLX Qty: 0 0RF Continued lisinopril 5 mg tablet 5 mg PO BID multivitamin tablet 1 tab PO QDAY metformin 500 mg tablet 500 mg PO BID memantine 10 mg tablet 10 mg PO BID Label Comments: take 1 tablet by mouth twice a day (START WITH ORAL CHEMO) ondansetron HCl 8 mg tablet 8 mg PO Q8H PRN (Reason: Nausea) pantoprazole 20 mg tablet,delayed release (DR/EC) 20 mg PO DAILY dexamethasone 2 mg tablet 2 mg PO BID lomustine 100 mg capsule 200 mg PO Q6W lomustine 10 mg capsule 20 mg PO Q6W sotalol 120 mg tablet 120 mg PO Q12H Qty: 180 3RF Eliquis 5 mg tablet 5 mg PO BID Qty: 60 10RF Discontinued furosemide 40 mg tablet 40 mg PO .COMPLEX Qty: 90 3RF Rx Instructions: 40 mg PO ; 40mg PO BID x3 days, then 40mg PO Daily; Referrals / Follow Up: Shola Be MD [Primary Care Provider] - In 1 Week Augusto Mcqueen NP, MANAGER MEDIA RELATIONS-C [Nurse Practitioner] - Within 1 Month Disposition Disposition (needs filled in before D/C Order can be placed): Long Term Facility Documented by User: Dr. Elizabeth Forbes MD 04/14/22 12:10 Providers Date of Admission: 04/11/22 Reason For Visit: RLE CELLULITIS, INTRACTABLE DIARRHEA, FTT ADULT Diagnosis Discharge Diagnosis (1) Cellulitis of leg, right: Status: Acute Code(s): L03.115 - Cellulitis of right lower limb Medications at Discharge Home Medications lisinopril 5 mg tablet 5 mg PO BID 12/06/17 multivitamin 1 tab PO QDAY 12/07/17 memantine 10 mg tablet 10 mg PO BID 06/19/21 metformin 500 mg tablet 500 mg PO BID 06/19/21 sotalol 120 mg tablet 120 mg PO Q12H #180 tabs 10/08/21 dexamethasone 2 mg tablet 2 mg PO BID 02/11/22 lomustine 10 mg capsule 20 mg PO Q6W 02/11/22 lomustine 100 mg capsule 200 mg PO Q6W 02/11/22 ondansetron HCl 8 mg tablet 8 mg PO Q8H PRN Nausea 02/11/22 pantoprazole 20 mg tablet,delayed release 20 mg PO DAILY 02/11/22 apixaban 5 mg tablet (Eliquis) 5 mg PO BID #60 tabs 03/16/22 cephalexin 500 mg capsule 500 mg PO Q8 5 days #15 caps 04/14/22 furosemide 40 mg tablet 40 mg PO BIDLX #0 tabs 04/14/22 ABG / Lab / Microbiology Data Result Diagrams: 04/14/22 06:00 04/14/22 06:00 Discharge Plan Admission Admit Date/Time: 04/11/22 20:20 Primary Reason for Your Visit: RLE Cellulitis Attending Provider: Elizabeth Forbes Primary Care Provider: Shola Be Consulting Providers: Angela Valdes ; Tyson Hu Instructions Additional Instructions / Restrictions: Continue snug Enmanuel wraps bilateral lower extremities. Discharge Orders/Prescriptions Prescriptions: New cephalexin 500 mg Capsule 500 mg PO Q8 5 Days Qty: 15 0RF furosemide 40 mg Tablet 40 mg PO BIDLX Qty: 0 0RF Continued lisinopril 5 mg tablet 5 mg PO BID multivitamin tablet 1 tab PO QDAY metformin 500 mg tablet 500 mg PO BID memantine 10 mg tablet 10 mg PO BID Label Comments: take 1 tablet by mouth twice a day (START WITH ORAL CHEMO) ondansetron HCl 8 mg tablet 8 mg PO Q8H PRN (Reason: Nausea) pantoprazole 20 mg tablet,delayed release (DR/EC) 20 mg PO DAILY dexamethasone 2 mg tablet 2 mg PO BID lomustine 100 mg capsule 200 mg PO Q6W lomustine 10 mg capsule 20 mg PO Q6W sotalol 120 mg tablet 120 mg PO Q12H Qty: 180 3RF Eliquis 5 mg tablet 5 mg PO BID Qty: 60 10RF Discontinued furosemide 40 mg tablet 40 mg PO .COMPLEX Qty: 90 3RF Rx Instructions: 40 mg PO ; 40mg PO BID x3 days, then 40mg PO Daily; Referrals / Follow Up: Shola Be MD [Primary Care Provider] - In 1 Week Augusto Mcqueen NP, MANAGER MEDIA RELATIONS-C [Nurse Practitioner] - Within 1 Month Disposition Disposition (needs filled in before D/C Order can be placed): Long Term Facility Charges/Coding Addendum Addendum: This patient was seen in conjunction with Joyce Dye NP.? I have independently interviewed and examined the patient and reviewed pertinent historical, laboratory, and other data. I have reviewed her note and concur with her documentation 71-year-old male with multiple comorbidities who was admitted with lower extremity edema and right lower extremity redness. Patient was found to have cellulitis. He was started on IV Rocephin, Lasix. There was also no is wrapping of his legs. There was improvement in his leg swelling. He was transitioned to Keflex to finish the course. Patient was seen by PT and OT and skilled for discharge to assisted facility. He was discharged on Keflex to complete 1 week. He was also discharged on Lasix 40 mg p.o. twice daily. Physical Exam: Gen: Comfortable, not pale, not jaundiced, morbidly obese CVS:HS I +II, regular, no murmurs RESP: Diminished at lung bases GI: BS present and normal, soft, nontender, no palpable organs EXT: Bilateral pedal edema +3, Enmanuel wraps to lower extremities Time spent coordinating all aspects of patient's care, discussing with nursinminutes Visit Charges Inpatient E&M: 53434 Disch Hosp
[2022-04-14 10:13] VITALS: BP 125/74; PULSE 71; RESP 18; TEMP 36.8; O2SAT 96
[2022-04-14] MEDS: Lisinopril 5 MG Tablet PO (10:15)
[2022-04-14] MEDS: Menthol/Lanolin/Calamine/Znox 113 GM Tube 1 APPLIC TOPICAL (10:15)
--- NOTE | 2022-04-14 10:40 | CASEMGMT ---
Social Work Pt requesting to meet with [facility]. SW met with pt and and stating second facility of choice is [facility]. [facility] spoke with Prudence, discharge title assistant, who states [facility] states they have not made a decision yet if pt can be accepted, although the did submit for precert and received it. [facility] states precert can be transferred to accepting facility if pt is denied admission to their facility. [facility] requested Prudence start [facility] as it appears doubtful that [facility] will [facility]. [facility]. Precert has been obtained. DEVI Vasquez
--- NOTE | 2022-04-14 12:25 | CASEMGMT ---
Discharge Driver/Sales Workers Arron from [facility] called. Patient has been accepted and can go to [facility] when medically ready. [facility] Travis notified. Prudence Roman Discharge Driver/Sales Workers
[2022-04-14 12:51] LABS: Bedside Glucose 250 mg/dL (74-106)
[2022-04-14 12:53] LABS: Pathologist Review Reviewed
--- NOTE | 2022-04-14 13:06 | CASEMGMT ---
Social Work Per shelley Foss entry level marketing assistant, [facility] is able to accept pt. [facility] has not made a decision on acceptance. Per physician, Pt is medically ready for discharge. [facility] met with pt and and they are [facility] placed call to Shelby at [facility]. Precert has been granted with auth #[id number]. Arron at [facility] updated that pt will discharge today and preaut number provided. [id number] completed in [facility] and faxed along with orders to [facility]. Transportation will be set up once negative covid test is received. Pt and agreeable to d/c plan. Plan: [facility], skilled level of care under convalescent stay. DEVI Vasquez
--- NOTE | 2022-04-14 14:39 | CASEMGMT ---
Addendum entered by Jennifer Ambriz 04/14/22 15:29: TC to Arron at [facility], left message that pick pack worker time for patient is 1630. RN CM in to pt room, pt and aware of pick pack worker time. Pt nurse also aware. Addendum entered by Jennifer Ambriz 04/14/22 15:12: COVID test negative, copy printed and given to departmental secretary with green sheet and transport forms. Original Note: TC to lab to check on covid result. Specimen found, will be approx 20 minutes.
[2022-04-14] MEDS: Cephalexin 500 MG Capsule PO (14:55)
[2022-04-14 14:57] VITALS: BP 136/79; PULSE 64; RESP 18; TEMP 36.8; O2SAT 94
== END 2022-04-14 16:55 | DRG 603 ==
LOC: ED 20:03 → MS3 20:42
PROVIDERS: Internal Medicine; Nurse Practitioner Family; Admitting Provider Family Medicine; Emergency Provider Emergency Medicine; PCP Family Medicine; Visit Provider Internal Medicine
DX: L03.115 Cellulitis of right lower limb (principal); C71.9 Malignant neoplasm of brain, unspecified; D84.821 Immunodeficiency due to drugs; E87.2 Acidosis; I50.32 Chronic diastolic (congestive) heart failure; F03.91 Unspecified dementia, unspecified severity, with behavioral disturbance; R17 Unspecified jaundice; D69.6 Thrombocytopenia, unspecified; I11.0 Hypertensive heart disease with heart failure; I48.0 Paroxysmal atrial fibrillation; E11.9 Type 2 diabetes mellitus without complications; E66.01 Morbid (severe) obesity due to excess calories; G47.33 Obstructive sleep apnea (adult) (pediatric); D50.9 Iron deficiency anemia, unspecified; E78.5 Hyperlipidemia, unspecified; E87.6 Hypokalemia; Z68.38 Body mass index [BMI] 38.0-38.9, adult; R62.7 Adult failure to thrive; Z79.01 Long term (current) use of anticoagulants; Z79.899 Other long term (current) drug therapy; Z79.84 Long term (current) use of oral hypoglycemic drugs; Z79.52 Long term (current) use of systemic steroids; A08.4 Viral intestinal infection, unspecified
CPT/HCPCS: 36415; 71045; 80048; 80053; 81001; 82962; 83036; 83605; 83735; 83880; 84100; 84484; 85025; 87040; 87426; 87633; 87811; 93005; 94640; 97110; 97162; 97166; 97530; 97535; 97802; 99251; 99285; A4216; G0463; J0295; J1940